=== PATIENT | female | born 1945 | race American Indian/Alaskan Native ===

== ENCOUNTER 2017-08-08 18:26 | Inpatient (IN) | payer MEDICARE, BC ==
[~2017-08-08] VITALS: Ht 157.5 cm; Wt 92.4 kg
[2017-08-08 19:27] LABS: INR 1.2 INR; PARTIAL THROMBOPLASTIN TIME 26 SECONDS (22-32); PROTHROMBIN TIME 11.9 SECONDS (9.0-12.0)
[2017-08-08 19:34] LABS: ALANINE AMINOTRANSFERASE 27 U/L (12-78); ALBUMIN 3.2 G/DL (3.4-5.0); ALBUMIN/GLOBULIN RATIO 0.6 (1.1-1.5); ALKALINE PHOSPHATASE 299 IU/L (46-116); ANION GAP 9 (8-16); ASPARTATE AMINO TRANSFERASE 25 U/L (10-37); BILIRUBIN,TOTAL 1.4 MG/DL (0.1-1.0); BLOOD UREA NITROGEN 24 MG/DL (7-18); BUN/CREATININE RATIO 15.1 (6.6-38.0); CALCIUM 9.3 MG/DL (8.5-10.1); CHLORIDE 101 MMOL/L (99-107); CREATININE 1.59 MG/DL (0.40-0.90); GLUCOSE 205 MG/DL (70-104); POTASSIUM 3.5 MMOL/L (3.5-5.1); SODIUM 139 MMOL/L (135-145); TOTAL CARBON DIOXIDE 28.7 MMOL/L (24-32); TOTAL PROTEIN 8.7 G/DL (6.4-8.2); eGFR 32 ML/MIN
[2017-08-08] MEDS ORDERED: INSU100V12 SQ (19:34)
[2017-08-08] MEDS ORDERED: LISI-600 PO (19:34)
[2017-08-08 19:38] LABS: BASOPHILS % (AUTO) 0.5 % (0-1); EOSINOPHILS # (AUTO) 0.2 X10'3 (0-0.9); HEMATOCRIT 34.7 % (35.0-45.0); HEMOGLOBIN 11.7 g/dl (12.0-16.0); LYMPHOCYTES # (AUTO) 0.9 X10'3 (1.1-4.8); MEAN CORPUSCULAR HEMOGLOBIN 31.1 PG (27.0-31.0); MEAN CORPUSCULAR HGB CONC 33.8 % (33.0-36.5); MEAN CORPUSCULAR VOLUME 92.1 FL (78-98); MEAN PLATELET VOLUME 9.9 FL (7.4-10.4); MONOCYTES # (AUTO) 0.6 X10'3 (0-0.9); MONOCYTES % (AUTO) 8.2 % (2-12); NEUTROPHILS # (AUTO) 6.1 X10'3 (1.8-7.7); NEUTROPHILS % (AUTO) 77.3 % (42-75); PLATELET COUNT 141 X10'3 (140-440); RED BLOOD COUNT 3.77 X10'6 (4.20-5.60); RED CELL DISTRIBUTION WIDTH 16.6 % (11.5-14.5); WHITE BLOOD COUNT 7.9 X10'3 (4.5-11.0)
[2017-08-08 19:53] LABS: D-DIMER 1.44 MG/L FEU (0-0.50)
[2017-08-08] MEDS ORDERED: temazepam 15mg capsule PO PRN (21:00)
[2017-08-08] MEDS ORDERED: iohexol 350MG/ML 100ml bottle IV ONE (21:39)
[2017-08-08] MEDS ORDERED: HYDROchlorothiazide 25mg tablet PO ONE (21:40)
[2017-08-08] MEDS ORDERED: acetaminophen 325mg tablet PO PRN ×2 (21:40)
[2017-08-08] MEDS ORDERED: glucagon, human recombinant 1mg kit SUBCUT PRN (21:40)
[2017-08-08] MEDS ORDERED: magnesium hydroxide 30ml (MOM) UD suspension PO PRN (21:40)
[2017-08-08] MEDS ORDERED: MESSAGE TO PHARMACY PO ONE (21:40)
[2017-08-08] MEDS ORDERED: mag hydrox/Alum hydrox/simeth 30ml oral suspension PO PRN (21:40)
[2017-08-08] MEDS ORDERED: dextrose ORAL solution 15 GM/59 ML bottle PO PRN ×2 (21:40)
[2017-08-08] MEDS ORDERED: dextrose 50%-water 50ml dispensing syringe IV PRN ×2 (21:40)
[2017-08-08] MEDS ORDERED: HYDROcodone/acetaminophen 5mg/325mg tablet PO PRN (21:40)
[2017-08-08 22:15] VITALS: BP 200/107
[2017-08-08 22:23] LABS: HEMOGLOBIN A1C 10.8 % (4.5-6.2)
[2017-08-08 23:00] VITALS: BP 194/97
[2017-08-09] VITALS (12 sets, daily range): BP systolic 97–159; BP diastolic 44–87
[2017-08-09] MEDS: nitroGLYCERIN 0.4mg/hour patch TD SCH ×2 (00:46→08:00)
[2017-08-09] MEDS: ondansetron/PF 4mg/2ml inj IV PRN ×2 (02:29→09:12)
[2017-08-09 06:03] LABS: BASOPHILS # (AUTO) 0.1 X10'3 (0-0.2); BASOPHILS % (AUTO) 0.9 % (0-1); EOSINOPHILS # (AUTO) 0.2 X10'3 (0-0.9); EOSINOPHILS % (AUTO) 2.8 % (0-6); HEMATOCRIT 31.3 % (35.0-45.0); HEMOGLOBIN 10.6 g/dl (12.0-16.0); LYMPHOCYTES # (AUTO) 0.8 X10'3 (1.1-4.8); LYMPHOCYTES % (AUTO) 10.8 % (21-51); MEAN CORPUSCULAR HGB CONC 33.7 % (33.0-36.5); MEAN PLATELET VOLUME 9.8 FL (7.4-10.4); MONOCYTES # (AUTO) 0.7 X10'3 (0-0.9); MONOCYTES % (AUTO) 9.6 % (2-12); NEUTROPHILS # (AUTO) 5.3 X10'3 (1.8-7.7); NEUTROPHILS % (AUTO) 75.9 % (42-75); PLATELET COUNT 122 X10'3 (140-440); RED CELL DISTRIBUTION WIDTH 16.3 % (11.5-14.5)
[2017-08-09 06:21] LABS: ALBUMIN 2.7 G/DL (3.4-5.0); ANION GAP 8 (8-16); BLOOD UREA NITROGEN 22 MG/DL (7-18); BUN/CREATININE RATIO 15.6 (6.6-38.0); CALCIUM 8.9 MG/DL (8.5-10.1); CHLORIDE 101 MMOL/L (99-107); CHOLESTEROL 127 MG/DL (0-200); CREATININE 1.41 MG/DL (0.40-0.90); GLUCOSE 193 MG/DL (70-104); HDL CHOLESTEROL 43 MG/DL (35-60); LDL CHOLESTEROL 82 MG/DL (50-100); POTASSIUM 3.7 MMOL/L (3.5-5.1); SODIUM 138 MMOL/L (135-145); TOTAL CARBON DIOXIDE 28.8 MMOL/L (24-32); TRIGLYCERIDES 69 MG/DL (20-135); TROPONIN I < 0.04 NG/ML (0.0-0.05); eGFR 37 ML/MIN
[2017-08-09] MEDS: lisinopril 20mg tablet PO SCH (07:42)
[2017-08-09] MEDS ORDERED: nitroGLYCERIN 0.4mg/hour patch TD SCH ×2 (08:00)
[2017-08-09] MEDS: insulin Lispro (HumaLOG) vial - multi-dose SQ SCH ×2 (09:16→12:17)
[2017-08-09] MEDS ORDERED: sodium bicarbonate (8.4%) inj. 150 MEQ in sodium chloride 0.45% 1,000 ML IV SCH (10:15)
[2017-08-09] MEDS: acetylcysteine 200 MG/ml 4ml vial PO SCH ×2 (11:34→21:31)
[2017-08-09] MEDS ORDERED: midazolam 2 mg/2 ml injection ONE (12:14)
[2017-08-09] MEDS ORDERED: fentaNYL/PF 50MCG/1 ML 2ML syringe ONE (12:14)
[2017-08-09] MEDS ORDERED: heparin 1,000unit/ml 10ml vial 10 ML ONE (12:15)
[2017-08-09] MEDS ORDERED: iohexol 350 MG/ML 50ML vial IV ONE (12:15)
[2017-08-09] MEDS ORDERED: iohexol 350MG/ML 100ml bottle IV ONE (12:15)
[2017-08-09] MEDS ORDERED: LIDOcaine 1% w/EPI 1:100,000 30ml vial (MDV) ONE (12:15)
[2017-08-09] MEDS ORDERED: nitroGLYCERIN-Tridil 50MG/D5W 250 ML IV ONE (12:50)
[2017-08-09] MEDS ORDERED: heparin 1,000 UNITS/NS 500ml 500 ML ONE (13:28)
[2017-08-09] MEDS ORDERED: furosemide 40mg/4ml inj ONE (13:38)
[2017-08-09] MEDS ORDERED: diphenhydrAMINE 50 mg/ml inj ONE (13:50)
[2017-08-09 14:41] LABS: ISTAT HGB ART 10.5 g/dl (12.0-16.0); ISTAT Hct ART 31 %PCV (35-48); ISTAT O2 SATURATION ARTERIAL 95 % (95-98); ISTAT SOURCE ART
[2017-08-09 14:45] LABS: ISTAT Hct MIX 32 %PCV (35-48); ISTAT O2 SATURATION MIX VENOUS 69 % (60-80); ISTAT SOURCE MIX
[2017-08-09] MEDS ORDERED: magnesium Cl slow-release 64mg tablet PO PRN (14:55)
[2017-08-09] MEDS ORDERED: potassium Cl 20 mEq SR tablet PO PRN ×3 (14:55→15:00)
[2017-08-09] MEDS ORDERED: potassium Cl 20 mEq SR tablet PO ONE (14:55)
[2017-08-09] MEDS: pantoprazole 40mg Tablet.DR PO SCH (16:53)
[2017-08-09] MEDS: potassium Cl 20 mEq SR tablet PO SCH (17:30)
[2017-08-09] MEDS: furosemide 20 MG/2 ML vial IV SCH (20:00)
[2017-08-09] MEDS: gabapentin 100mg capsule PO SCH (20:44)
[2017-08-09] MEDS ORDERED: INSULIN DETEMIR 60 UNIT SQ SCH (21:00)
[2017-08-09] MEDS ORDERED: insulin glargine (Lantus) pen - multi-dose SQ SCH (21:00)
[2017-08-09] MEDS: temazepam 15mg capsule PO PRN (21:31)
[2017-08-09] MEDS: insulin glargine (Lantus) pen - multi-dose SQ SCH (21:34)
[2017-08-10 02:00] VITALS: BP 125/71
[2017-08-10 04:50] LABS: BASOPHILS % (AUTO) 0.4 % (0-1); EOSINOPHILS # (AUTO) 0.1 X10'3 (0-0.9); EOSINOPHILS % (AUTO) 2.1 % (0-6); HEMOGLOBIN 10.3 g/dl (12.0-16.0); LYMPHOCYTES # (AUTO) 0.8 X10'3 (1.1-4.8); LYMPHOCYTES % (AUTO) 11.2 % (21-51); MEAN CORPUSCULAR HEMOGLOBIN 30.8 PG (27.0-31.0); MEAN CORPUSCULAR HGB CONC 33.2 % (33.0-36.5); MEAN CORPUSCULAR VOLUME 92.6 FL (78-98); MEAN PLATELET VOLUME 9.7 FL (7.4-10.4); MONOCYTES # (AUTO) 0.9 X10'3 (0-0.9); NEUTROPHILS # (AUTO) 5.1 X10'3 (1.8-7.7); NEUTROPHILS % (AUTO) 73.3 % (42-75); PLATELET COUNT 117 X10'3 (140-440); RED BLOOD COUNT 3.35 X10'6 (4.20-5.60); RED CELL DISTRIBUTION WIDTH 16.8 % (11.5-14.5)
[2017-08-10 05:22] LABS: ALBUMIN 2.8 G/DL (3.4-5.0); ANION GAP 2 (8-16); BLOOD UREA NITROGEN 26 MG/DL (7-18); BUN/CREATININE RATIO 14.8 (6.6-38.0); CALCIUM 8.7 MG/DL (8.5-10.1); CHLORIDE 101 MMOL/L (99-107); CREATININE 1.76 MG/DL (0.40-0.90); GLUCOSE 200 MG/DL (70-104); SODIUM 137 MMOL/L (135-145); TOTAL CARBON DIOXIDE 33.6 MMOL/L (24-32); eGFR 28 ML/MIN
[2017-08-10 06:00] VITALS: BP 138/69
[2017-08-10 06:49] LABS: MAGNESIUM 1.7 MG/DL (1.5-2.4)
[2017-08-10] MEDS: gabapentin 100mg capsule PO SCH ×3 (07:22→21:11)
[2017-08-10] MEDS: furosemide 20 MG/2 ML vial IV SCH ×2 (07:22→21:11)
[2017-08-10] MEDS: lisinopril 20mg tablet PO SCH (07:23)
[2017-08-10] MEDS: pantoprazole 40mg Tablet.DR PO SCH (07:23)
[2017-08-10] MEDS: potassium Cl 20 mEq SR tablet PO SCH ×2 (07:23→08:30)
[2017-08-10] MEDS: nitroGLYCERIN 0.4mg/hour patch TD SCH (08:00)
[2017-08-10] MEDS ORDERED: furosemide 40mg tablet PO SCH (08:00)
[2017-08-10] MEDS: acetylcysteine 200 MG/ml 4ml vial PO SCH (09:22)
[2017-08-10] MEDS: insulin Lispro (HumaLOG) vial - multi-dose SQ SCH ×3 (09:34→19:12)
[2017-08-10 11:00] VITALS: BP 109/56
[2017-08-10] MEDS ORDERED: MESSAGE TO NURSING PO ONE (12:30)
[2017-08-10 13:06] LABS: INR 1.2 INR; PARTIAL THROMBOPLASTIN TIME 26 SECONDS (22-32); PROTHROMBIN TIME 12.1 SECONDS (9.0-12.0)
[2017-08-10 15:00] VITALS: BP 116/48
[2017-08-10 18:00] VITALS: BP 116/59
[2017-08-10] MEDS: insulin glargine (Lantus) pen - multi-dose SQ SCH (21:28)
[2017-08-10 22:00] VITALS: BP 102/57
[2017-08-11 02:00] VITALS: BP 93/52
[2017-08-11] MEDS: ondansetron/PF 4mg/2ml inj IV PRN (03:08)
[2017-08-11 05:06] LABS: BASOPHILS % (AUTO) 0.4 % (0-1); EOSINOPHILS # (AUTO) 0.2 X10'3 (0-0.9); EOSINOPHILS % (AUTO) 3.1 % (0-6); HEMATOCRIT 30.6 % (35.0-45.0); HEMOGLOBIN 10.1 g/dl (12.0-16.0); LYMPHOCYTES % (AUTO) 14.5 % (21-51); MEAN CORPUSCULAR HEMOGLOBIN 30.6 PG (27.0-31.0); MEAN CORPUSCULAR HGB CONC 33.1 % (33.0-36.5); MEAN CORPUSCULAR VOLUME 92.4 FL (78-98); MONOCYTES # (AUTO) 0.9 X10'3 (0-0.9); MONOCYTES % (AUTO) 13.2 % (2-12); NEUTROPHILS # (AUTO) 4.7 X10'3 (1.8-7.7); NEUTROPHILS % (AUTO) 68.8 % (42-75); PLATELET COUNT 118 X10'3 (140-440); RED BLOOD COUNT 3.31 X10'6 (4.20-5.60); RED CELL DISTRIBUTION WIDTH 16.2 % (11.5-14.5); WHITE BLOOD COUNT 6.8 X10'3 (4.5-11.0)
[2017-08-11 05:41] LABS: ALBUMIN 2.7 G/DL (3.4-5.0); ANION GAP 5 (8-16); BLOOD UREA NITROGEN 33 MG/DL (7-18); BUN/CREATININE RATIO 11.9 (6.6-38.0); CALCIUM 8.6 MG/DL (8.5-10.1); CHLORIDE 100 MMOL/L (99-107); CREATININE 2.77 MG/DL (0.40-0.90); GLUCOSE 97 MG/DL (70-104); POTASSIUM 4.5 MMOL/L (3.5-5.1); SODIUM 136 MMOL/L (135-145); TOTAL CARBON DIOXIDE 31.4 MMOL/L (24-32); eGFR 17 ML/MIN
[2017-08-11 06:00] VITALS: BP 113/50
[2017-08-11] MEDS: potassium Cl 20 mEq SR tablet PO SCH (08:00)
[2017-08-11] MEDS: gabapentin 100mg capsule PO SCH ×3 (08:00→20:25)
[2017-08-11] MEDS ORDERED: bisacodyl 5mg tablet.DR PO ONE (08:55)
[2017-08-11] MEDS: acetylcysteine 200 MG/ml 4ml vial PO SCH ×2 (09:57→20:00)
[2017-08-11] MEDS: insulin Lispro (HumaLOG) vial - multi-dose SQ SCH ×3 (10:01→18:48)
[2017-08-11] MEDS: normal saline 1000ml 1,000 ML IV SCH ×2 (10:02→20:37)
[2017-08-11 11:00] VITALS: BP 146/82
[2017-08-11 11:47] LABS: CLARITY,URINE CLOUDY (Clear); COLOR,URINE YELLOW (Yellow); GLUCOSE, URINE NEGATIVE (Neg); KETONES,URINE NEGATIVE (Neg); LEUKOCYTE ESTERASE ,URINE LARGE (Neg); NITRITES, URINE NEGATIVE (Neg); OCCULT BLOOD,URINE LARGE (Neg); PH,URINE 6.5 (4.8-8.0); PROTEIN,URINE 30 mg/dl (Neg)
[2017-08-11 12:02] LABS: UA COLLECTION TYPE NON-SPECIFIED
[2017-08-11 12:03] LABS: BACTERIA,URINE FEW /HPF (Neg); RBC,URINE 20-50 /HPF (0-2); SQUAMOUS EPITHELIAL CELL,UR MODERATE /LPF (FEW); WBC,URINE TNTC /HPF (0-4)
[2017-08-11 12:04] LABS: MUCUS STRANDS FEW /LPF (Neg)
[2017-08-11 14:28] LABS: ALBUMIN 2.8 G/DL (3.4-5.0); ANION GAP 9 (8-16); BLOOD UREA NITROGEN 35 MG/DL (7-18); BUN/CREATININE RATIO 11.6 (6.6-38.0); CALCIUM 8.9 MG/DL (8.5-10.1); CHLORIDE 98 MMOL/L (99-107); CREATININE 3.03 MG/DL (0.40-0.90); GLUCOSE 201 MG/DL (70-104); POTASSIUM 4.2 MMOL/L (3.5-5.1); SODIUM 135 MMOL/L (135-145); TOTAL CARBON DIOXIDE 28.3 MMOL/L (24-32); eGFR 15 ML/MIN
[2017-08-11 15:00] VITALS: BP 134/65
[2017-08-11] MEDS: ciprofloxacin 250mg tablet PO SCH (16:21)
[2017-08-11 19:00] VITALS: BP 125/59
[2017-08-11 20:18] LABS: CLARITY,URINE CLOUDY (Clear); COLOR,URINE YELLOW (Yellow); GLUCOSE, URINE NEGATIVE (Neg); KETONES,URINE NEGATIVE (Neg); LEUKOCYTE ESTERASE ,URINE LARGE (Neg); NITRITES, URINE NEGATIVE (Neg); OCCULT BLOOD,URINE LARGE (Neg); PROTEIN,URINE 30 mg/dl (Neg)
[2017-08-11 20:20] LABS: UA COLLECTION TYPE VOIDED
[2017-08-11 20:35] LABS: WBC,URINE TNTC /HPF (0-4)
[2017-08-11 20:36] LABS: BACTERIA,URINE 2+ /HPF (Neg)
[2017-08-11 20:37] LABS: SQUAMOUS EPITHELIAL CELL,UR MODERATE /LPF (FEW)
[2017-08-11] MEDS: temazepam 15mg capsule PO PRN (20:37)
[2017-08-11] MEDS: insulin glargine (Lantus) pen - multi-dose SQ SCH (20:44)
[2017-08-11 23:00] VITALS: BP 97/48
[2017-08-12 03:00] VITALS: BP 98/60
[2017-08-12 05:08] LABS: BASOPHILS % (AUTO) 0.7 % (0-1); EOSINOPHILS # (AUTO) 0.3 X10'3 (0-0.9); EOSINOPHILS % (AUTO) 4.2 % (0-6); HEMATOCRIT 29.8 % (35.0-45.0); LYMPHOCYTES # (AUTO) 0.8 X10'3 (1.1-4.8); LYMPHOCYTES % (AUTO) 13.2 % (21-51); MEAN CORPUSCULAR HEMOGLOBIN 31.1 PG (27.0-31.0); MEAN CORPUSCULAR HGB CONC 33.4 % (33.0-36.5); MEAN PLATELET VOLUME 9.9 FL (7.4-10.4); MONOCYTES # (AUTO) 0.8 X10'3 (0-0.9); MONOCYTES % (AUTO) 12.9 % (2-12); NEUTROPHILS # (AUTO) 4.2 X10'3 (1.8-7.7); PLATELET COUNT 111 X10'3 (140-440); RED BLOOD COUNT 3.21 X10'6 (4.20-5.60); RED CELL DISTRIBUTION WIDTH 16.7 % (11.5-14.5); WHITE BLOOD COUNT 6.1 X10'3 (4.5-11.0)
[2017-08-12 05:49] LABS: ALBUMIN 2.6 G/DL (3.4-5.0); ANION GAP 5 (8-16); BLOOD UREA NITROGEN 39 MG/DL (7-18); BUN/CREATININE RATIO 13.4 (6.6-38.0); CALCIUM 8.3 MG/DL (8.5-10.1); CHLORIDE 101 MMOL/L (99-107); CREATININE 2.91 MG/DL (0.40-0.90); GLUCOSE 102 MG/DL (70-104); POTASSIUM 4.3 MMOL/L (3.5-5.1); SODIUM 134 MMOL/L (135-145); TOTAL CARBON DIOXIDE 28.4 MMOL/L (24-32); eGFR 16 ML/MIN
[2017-08-12 07:00] VITALS: BP 122/75
[2017-08-12] MEDS: acetylcysteine 200 MG/ml 4ml vial PO SCH ×2 (08:54→21:33)
[2017-08-12] MEDS: gabapentin 100mg capsule PO SCH ×3 (08:55→21:32)
[2017-08-12] MEDS: normal saline 1000ml 1,000 ML IV SCH ×2 (09:03→14:15)
[2017-08-12] MEDS: ciprofloxacin 250mg tablet PO SCH (09:05)
[2017-08-12] MEDS: lisinopril 10 MG tablet PO SCH (09:05)
[2017-08-12] MEDS ORDERED: magnesium hydroxide 30ml (MOM) UD suspension PO ONE (10:20)
[2017-08-12 11:33] VITALS: BP 148/85
[2017-08-12] MEDS: insulin Lispro (HumaLOG) vial - multi-dose SQ SCH ×2 (13:34→19:58)
[2017-08-12 19:00] VITALS: BP 152/77
[2017-08-12] MEDS: temazepam 15mg capsule PO PRN (21:31)
[2017-08-12] MEDS: insulin glargine (Lantus) pen - multi-dose SQ SCH (21:42)
[2017-08-12 23:00] VITALS: BP 99/53
[2017-08-13] VITALS (7 sets, daily range): BP systolic 99–174; BP diastolic 54–79
[2017-08-13] MEDS ORDERED: potassium phosphate inj 30 MMOL in normal saline 500ml IV soln 490 ML IV ONE (02:00)
[2017-08-13 05:58] LABS: BASOPHILS % (AUTO) 0.7 % (0-1); EOSINOPHILS # (AUTO) 0.3 X10'3 (0-0.9); EOSINOPHILS % (AUTO) 4.7 % (0-6); HEMATOCRIT 30.5 % (35.0-45.0); HEMOGLOBIN 10.2 g/dl (12.0-16.0); LYMPHOCYTES # (AUTO) 0.8 X10'3 (1.1-4.8); LYMPHOCYTES % (AUTO) 12.6 % (21-51); MEAN CORPUSCULAR HEMOGLOBIN 30.7 PG (27.0-31.0); MEAN CORPUSCULAR HGB CONC 33.4 % (33.0-36.5); MEAN CORPUSCULAR VOLUME 91.8 FL (78-98); MEAN PLATELET VOLUME 9.9 FL (7.4-10.4); MONOCYTES # (AUTO) 0.7 X10'3 (0-0.9); MONOCYTES % (AUTO) 12.1 % (2-12); NEUTROPHILS # (AUTO) 4.3 X10'3 (1.8-7.7); NEUTROPHILS % (AUTO) 69.9 % (42-75); PLATELET COUNT 121 X10'3 (140-440); RED BLOOD COUNT 3.32 X10'6 (4.20-5.60); RED CELL DISTRIBUTION WIDTH 16.5 % (11.5-14.5); WHITE BLOOD COUNT 6.2 X10'3 (4.5-11.0)
[2017-08-13 06:27] LABS: ALBUMIN 2.7 G/DL (3.4-5.0); ANION GAP 10 (8-16); BLOOD UREA NITROGEN 41 MG/DL (7-18); BUN/CREATININE RATIO 14.6 (6.6-38.0); CALCIUM 8.9 MG/DL (8.5-10.1); CHLORIDE 100 MMOL/L (99-107); CREATININE 2.81 MG/DL (0.40-0.90); GLUCOSE 128 MG/DL (70-104); POTASSIUM 4.4 MMOL/L (3.5-5.1); SODIUM 137 MMOL/L (135-145); TOTAL CARBON DIOXIDE 27.3 MMOL/L (24-32); eGFR 17 ML/MIN
[2017-08-13] MEDS: normal saline 1000ml 1,000 ML IV SCH ×3 (07:01→21:22)
[2017-08-13] MEDS: acetylcysteine 200 MG/ml 4ml vial PO SCH ×2 (07:50→21:29)
[2017-08-13] MEDS: gabapentin 100mg capsule PO SCH ×3 (07:50→21:17)
[2017-08-13] MEDS: lisinopril 10 MG tablet PO SCH (07:50)
[2017-08-13] MEDS: ciprofloxacin 250mg tablet PO SCH (07:50)
[2017-08-13 08:25] LABS: ABG BASE EXCESS 1.7 mmol/L (-2.0-3.0); ABG HCO3 25.4 mmol/L (22.0-26.0); ABG OXYGEN SATURATION 96.5 % (95-98); ABG PCO2 (T) 36.5 mmHg (32.0-45.0); ABG PO2 (T) 88.4 mmHg (83-108); ALLEN'S TEST Positive; FCOHb 0.8 % (0.5-1.5); FMetHb 0.3 % (0.3-1.12); FO2Hb 95.4 % (94-100); TOTAL HEMOGLOBIN 11.5 G/dl (12.0-16.0)
[2017-08-13] MEDS ORDERED: MESSAGE TO NURSING PO ONE (10:00)
[2017-08-13] MEDS: insulin Lispro (HumaLOG) vial - multi-dose SQ SCH ×2 (10:40→13:34)
[2017-08-13] MEDS ORDERED: mupirocin 2% nasal ointment 1gm UD NS SCH (20:00)
[2017-08-13] MEDS: insulin glargine (Lantus) pen - multi-dose SQ SCH (23:10)
[2017-08-14] VITALS (20 sets, daily range): BP systolic 112–147; BP diastolic 46–81
[2017-08-14] MEDS ORDERED: MESSAGE TO NURSING PO ONE ×3 (02:00→05:30)
[2017-08-14] MEDS ORDERED: LORazepam 2 mg/ml vial ONE ×2 (05:12→07:05)
[2017-08-14] MEDS ORDERED: dextrose 50%-water 50ml dispensing syringe IV PRN ×2 (05:30→10:35)
[2017-08-14] MEDS ORDERED: ceFAZolin 2gm in dextrose, iso 100 ML IV ONE (05:30)
[2017-08-14] MEDS ORDERED: insulin Lispro (HumaLOG) vial - multi-dose SQ SCH (05:30)
[2017-08-14] MEDS: insulin regular, human inj. 100 UNITS in normal saline 100ml IV soln 100 ML IV SCH ×2 (05:30)
[2017-08-14] MEDS ORDERED: vancomycin/NS 1 GM ADD-VANTAGE 250 ML IV ONE ×2 (05:30)
[2017-08-14 06:27] LABS: BASOPHILS % (AUTO) 0.8 % (0-1); EOSINOPHILS # (AUTO) 0.3 X10'3 (0-0.9); EOSINOPHILS % (AUTO) 4.7 % (0-6); HEMATOCRIT 32.5 % (35.0-45.0); HEMOGLOBIN 10.9 g/dl (12.0-16.0); LYMPHOCYTES # (AUTO) 0.8 X10'3 (1.1-4.8); LYMPHOCYTES % (AUTO) 12.3 % (21-51); MEAN CORPUSCULAR HGB CONC 33.6 % (33.0-36.5); MEAN CORPUSCULAR VOLUME 92.3 FL (78-98); MEAN PLATELET VOLUME 10.1 FL (7.4-10.4); MONOCYTES # (AUTO) 0.7 X10'3 (0-0.9); MONOCYTES % (AUTO) 10.8 % (2-12); NEUTROPHILS # (AUTO) 4.5 X10'3 (1.8-7.7); NEUTROPHILS % (AUTO) 71.4 % (42-75); PLATELET COUNT 134 X10'3 (140-440); RED BLOOD COUNT 3.53 X10'6 (4.20-5.60); RED CELL DISTRIBUTION WIDTH 16.8 % (11.5-14.5); WHITE BLOOD COUNT 6.4 X10'3 (4.5-11.0)
[2017-08-14 06:35] LABS: INR 1.2 INR
[2017-08-14 06:41] LABS: ALBUMIN 3.1 G/DL (3.4-5.0); ANION GAP 9 (8-16); BLOOD UREA NITROGEN 41 MG/DL (7-18); BUN/CREATININE RATIO 16.7 (6.6-38.0); CALCIUM 9.2 MG/DL (8.5-10.1); CHLORIDE 102 MMOL/L (99-107); CREATININE 2.45 MG/DL (0.40-0.90); GLUCOSE 116 MG/DL (70-104); POTASSIUM 4.4 MMOL/L (3.5-5.1); SODIUM 138 MMOL/L (135-145); TOTAL CARBON DIOXIDE 27.1 MMOL/L (24-32); eGFR 19 ML/MIN
[2017-08-14] MEDS ORDERED: LORazepam 2 mg/ml vial IV ONE ×2 (06:45→06:50)
[2017-08-14] MEDS ORDERED: famotidine 20mg tablet PO ONE (06:45)
[2017-08-14] MEDS ORDERED: mannitol 20% (100GM) 500ml IV soln IV ONE (06:55)
[2017-08-14] MEDS ORDERED: INSULIN R 100 UNIT in NS 100ML (1 UNIT/1 ML) BAG IV ONE (06:55)
[2017-08-14] MEDS ORDERED: sevoflurane 250ml liquid IH ONE (06:55)
[2017-08-14] MEDS ORDERED: DOBUTamine/D5W 500mg/250ml premix IV ONE (06:55)
[2017-08-14] MEDS ORDERED: nitroGLYCERIN in D5W 50mg/250ml (Tridil) infusion IV ONE (06:55)
[2017-08-14] MEDS ORDERED: SUFENTANIL CITRATE 50 MCG/ML 2ml ampule IV ONE (07:02)
[2017-08-14] MEDS ORDERED: rocuronium 10mg/ml inj IV ONE (07:03)
[2017-08-14] MEDS ORDERED: propofol inj 0 ML IV ONE (07:03)
[2017-08-14] MEDS ORDERED: etomidate 2mg/ml inj. ONE (07:03)
[2017-08-14] MEDS ORDERED: albumin (Human) 5% 250ml 250 ML IV ONE ×2 (07:07→08:04)
[2017-08-14 07:55] LABS: ABG BASE EXCESS 0.7 mmol/L (-2.0-3.0); ABG HCO3 23.5 mmol/L (22.0-26.0); ABG OXYGEN SATURATION 99.4 % (95-98); ABG PCO2 31.2 mmHg (35.0-45.0); ABG PH 7.495 (7.350-7.450); ABG PO2 305.7 mmHg (60.0-100.0); CL (ABG) 103 mmol/L (99-107); FCOHb 0.3 % (0.5-1.5); FMetHb 0.3 % (0.3-1.12); FO2Hb 98.8 % (94-100); GLUCOSE (ABG) 140 mg/dl (70-105); IONIZED CA (ABG) 1.07 mmol/L (1.03-1.32); K (ABG) 4.1 mmol/L (3.3-5.1); NA (ABG) 131 mmol/L (135-145); TOTAL HEMOGLOBIN 9.9 G/dl (12.0-16.0)
[2017-08-14] MEDS: gabapentin 100mg capsule PO SCH ×3 (08:00→20:04)
[2017-08-14] MEDS: acetylcysteine 200 MG/ml 4ml vial PO SCH (08:00)
[2017-08-14 08:51] LABS: ACT @ 1.70 U 343 SEC (193-297); ACT @ 2.84 U 586 SEC (260-420); BASELINE ACT 173 SEC (101-148); PATIENT WEIGHT 89.0k KG
[2017-08-14 09:51] LABS: ABG BASE EXCESS 4.5 mmol/L (-2.0-3.0); ABG HCO3 27.9 mmol/L (22.0-26.0); ABG OXYGEN SATURATION 97.1 % (95-98); ABG PCO2 36.4 mmHg (35.0-45.0); ABG PH 7.502 (7.350-7.450); ABG PO2 90.4 mmHg (60.0-100.0); CL (ABG) 104 mmol/L (99-107); FCOHb 0.2 % (0.5-1.5); FMetHb 0.3 % (0.3-1.12); FO2Hb 96.6 % (94-100); IONIZED CA (ABG) 1.06 mmol/L (1.03-1.32); K (ABG) 3.8 mmol/L (3.3-5.1); NA (ABG) 135 mmol/L (135-145); TOTAL HEMOGLOBIN 9.2 G/dl (12.0-16.0)
[2017-08-14] MEDS ORDERED: ipratropium/albuterol 3ml nebule IH PRN (10:00)
[2017-08-14] MEDS ORDERED: nitroGLYCERIN-Tridil 50MG/D5W 250 ML IV PRN (10:32)
[2017-08-14] MEDS: sodium chloride 0.45% 1,000 ML IV SCH (10:32)
[2017-08-14] MEDS ORDERED: niCARDipine/sod cl 20mg/200ml 200 ML IV PRN (10:32)
[2017-08-14] MEDS ORDERED: DOPamine 400mg/D5W 250ml 250 ML IV PRN (10:32)
[2017-08-14] MEDS ORDERED: potassium Cl 20mEq/100mL bag 100 ML IV PRN ×2 (10:35)
[2017-08-14] MEDS ORDERED: insulin regular, human inj. 100 UNITS in normal saline 100ml IV soln 100 ML IV SCH ×2 (10:35)
[2017-08-14] MEDS ORDERED: magnesium hydroxide 30ml (MOM) UD suspension PO PRN (10:35)
[2017-08-14] MEDS ORDERED: morphine 4 MG/ML inj SYRINge IV PRN (10:35)
[2017-08-14] MEDS ORDERED: acetaminophen 325mg tablet PO PRN (10:35)
[2017-08-14] MEDS ORDERED: sodium phosphate inj. 15 MMOL in dextrose 5%-water 150 ML IV PRN (10:35)
[2017-08-14] MEDS ORDERED: sodium phosphate inj. 30 MMOL in dextrose 5%-water 250 ML IV PRN (10:35)
[2017-08-14] MEDS ORDERED: normal saline 250ml IV soln 250 ML IV PRN (10:35)
[2017-08-14] MEDS ORDERED: metoclopramide 5 mg/ml inj IV PRN (10:35)
[2017-08-14] MEDS ORDERED: Neutra Phos packet PO PRN (10:35)
[2017-08-14] MEDS ORDERED: ondansetron/PF 4mg/2ml inj IV PRN (10:35)
[2017-08-14] MEDS ORDERED: magnesium 4gm in 100ml NS 100 ML IV PRN (10:35)
[2017-08-14 11:06] LABS: ABG BASE EXCESS 2.6 mmol/L (-2.0-3.0); ABG HCO3 25.4 mmol/L (22.0-26.0); ABG OXYGEN SATURATION 98.3 % (95-98); ABG PH (T) 7.485 (7.350-7.450); ABG PO2 (T) 148.3 mmHg (83-108); FCOHb 0.3 % (0.5-1.5); PEEP 5 cm H2O; RESPIRATORY RATE 14 b/min; TIDAL VOLUME 450 mL; TOTAL HEMOGLOBIN 8.9 G/dl (12.0-16.0)
[2017-08-14 11:08] LABS: BASOPHILS % (AUTO) 0.6 % (0-1); EOSINOPHILS # (AUTO) 0.2 X10'3 (0-0.9); EOSINOPHILS % (AUTO) 3.5 % (0-6); HEMOGLOBIN 8.1 g/dl (12.0-16.0); LYMPHOCYTES # (AUTO) 0.6 X10'3 (1.1-4.8); LYMPHOCYTES % (AUTO) 12.5 % (21-51); MEAN CORPUSCULAR HEMOGLOBIN 31.1 PG (27.0-31.0); MEAN CORPUSCULAR HGB CONC 33.9 % (33.0-36.5); MEAN PLATELET VOLUME 9.7 FL (7.4-10.4); MONOCYTES # (AUTO) 0.7 X10'3 (0-0.9); MONOCYTES % (AUTO) 13.1 % (2-12); NEUTROPHILS # (AUTO) 3.5 X10'3 (1.8-7.7); NEUTROPHILS % (AUTO) 70.3 % (42-75); PLATELET COUNT 105 X10'3 (140-440); RED BLOOD COUNT 2.61 X10'6 (4.20-5.60); RED CELL DISTRIBUTION WIDTH 16.5 % (11.5-14.5)
[2017-08-14 11:20] LABS: INR 1.3 INR; PARTIAL THROMBOPLASTIN TIME 29 SECONDS (22-32); PROTHROMBIN TIME 13.3 SECONDS (9.0-12.0)
[2017-08-14 11:24] LABS: ALANINE AMINOTRANSFERASE 18 U/L (12-78); ALBUMIN 2.3 G/DL (3.4-5.0); ALBUMIN/GLOBULIN RATIO 0.6 (1.1-1.5); ALKALINE PHOSPHATASE 161 IU/L (46-116); ANION GAP 5 (8-16); ASPARTATE AMINO TRANSFERASE 22 U/L (10-37); BLOOD UREA NITROGEN 39 MG/DL (7-18); CHLORIDE 106 MMOL/L (99-107); CREATININE 2.29 MG/DL (0.40-0.90); GLUCOSE 79 MG/DL (70-104); MAGNESIUM 2.2 MG/DL (1.5-2.4); PHOSPHORUS 3.8 MG/DL (2.3-4.5); POTASSIUM 3.7 MMOL/L (3.5-5.1); SODIUM 139 MMOL/L (135-145); TOTAL CARBON DIOXIDE 27.7 MMOL/L (24-32); eGFR 21 ML/MIN
[2017-08-14] MEDS: magnesium 1gm/100ml D5W IVPB 100 ML IV PRN ×2 (12:33→13:39)
[2017-08-14] MEDS: insulin Lispro (HumaLOG) vial - multi-dose SQ SCH ×2 (13:00→19:04)
[2017-08-14] MEDS: ceFAZolin 1GM/D5W- ADD-VANTAGE 50 ML IV SCH (16:03)
[2017-08-14 17:41] LABS: BASOPHILS % (AUTO) 0.5 % (0-1); EOSINOPHILS # (AUTO) 0.2 X10'3 (0-0.9); HEMATOCRIT 25.3 % (35.0-45.0); HEMOGLOBIN 8.5 g/dl (12.0-16.0); LYMPHOCYTES # (AUTO) 0.6 X10'3 (1.1-4.8); LYMPHOCYTES % (AUTO) 6.7 % (21-51); MEAN CORPUSCULAR HGB CONC 33.5 % (33.0-36.5); MEAN CORPUSCULAR VOLUME 92.4 FL (78-98); MEAN PLATELET VOLUME 9.9 FL (7.4-10.4); MONOCYTES # (AUTO) 0.9 X10'3 (0-0.9); MONOCYTES % (AUTO) 9.4 % (2-12); NEUTROPHILS # (AUTO) 7.8 X10'3 (1.8-7.7); NEUTROPHILS % (AUTO) 81.4 % (42-75); PLATELET COUNT 105 X10'3 (140-440); RED BLOOD COUNT 2.74 X10'6 (4.20-5.60); RED CELL DISTRIBUTION WIDTH 15.9 % (11.5-14.5); WHITE BLOOD COUNT 9.6 X10'3 (4.5-11.0)
[2017-08-14 17:53] LABS: ALBUMIN 2.3 G/DL (3.4-5.0); ANION GAP 6 (8-16); BLOOD UREA NITROGEN 36 MG/DL (7-18); CALCIUM 7.9 MG/DL (8.5-10.1); CHLORIDE 105 MMOL/L (99-107); GLUCOSE 130 MG/DL (70-104); POTASSIUM 4.1 MMOL/L (3.5-5.1); SODIUM 136 MMOL/L (135-145); TOTAL CARBON DIOXIDE 25.5 MMOL/L (24-32); eGFR 24 ML/MIN
[2017-08-14 18:38] LABS: MAGNESIUM 2.5 MG/DL (1.5-2.4)
[2017-08-14] MEDS: docusate sod 100mg capsule PO SCH (20:00)
[2017-08-14] MEDS: vancomycin/NS 1 GM ADD-VANTAGE 250 ML IV SCH (20:02)
[2017-08-14] MEDS: mupirocin 2% nasal ointment 1gm UD NS SCH (20:02)
[2017-08-14] MEDS: potassium Cl 20mEq/100mL bag 100 ML IV PRN (20:16)
[2017-08-14] MEDS: albumin (Human) 5% 250ml 250 ML IV PRN (21:00)
[2017-08-14] MEDS: morphine 4 MG/ML inj SYRINge IV PRN (22:35)
[2017-08-15] VITALS (24 sets, daily range): BP systolic 104–152; BP diastolic 48–72
[2017-08-15] MEDS: ceFAZolin 1GM/D5W- ADD-VANTAGE 50 ML IV SCH ×3 (00:22→16:03)
[2017-08-15] MEDS: albumin (Human) 5% 250ml 250 ML IV PRN (00:40)
[2017-08-15 02:27] LABS: BASOPHILS % (AUTO) 0.2 % (0-1); EOSINOPHILS # (AUTO) 0.1 X10'3 (0-0.9); EOSINOPHILS % (AUTO) 0.5 % (0-6); HEMATOCRIT 25.9 % (35.0-45.0); HEMOGLOBIN 8.7 g/dl (12.0-16.0); LYMPHOCYTES # (AUTO) 0.4 X10'3 (1.1-4.8); LYMPHOCYTES % (AUTO) 2.9 % (21-51); MEAN CORPUSCULAR HEMOGLOBIN 31.1 PG (27.0-31.0); MEAN CORPUSCULAR HGB CONC 33.6 % (33.0-36.5); MEAN CORPUSCULAR VOLUME 92.6 FL (78-98); MEAN PLATELET VOLUME 10.1 FL (7.4-10.4); MONOCYTES # (AUTO) 1.1 X10'3 (0-0.9); MONOCYTES % (AUTO) 7.9 % (2-12); NEUTROPHILS # (AUTO) 12.7 X10'3 (1.8-7.7); NEUTROPHILS % (AUTO) 88.5 % (42-75); PLATELET COUNT 102 X10'3 (140-440); RED CELL DISTRIBUTION WIDTH 16.4 % (11.5-14.5); WHITE BLOOD COUNT 14.4 X10'3 (4.5-11.0)
[2017-08-15 02:36] LABS: INR 1.2 INR; PARTIAL THROMBOPLASTIN TIME 31 SECONDS (22-32); PROTHROMBIN TIME 12.7 SECONDS (9.0-12.0)
[2017-08-15 02:39] LABS: ALANINE AMINOTRANSFERASE 14 U/L (12-78); ALBUMIN 2.8 G/DL (3.4-5.0); ALBUMIN/GLOBULIN RATIO 0.8 (1.1-1.5); ALKALINE PHOSPHATASE 160 IU/L (46-116); ANION GAP 7 (8-16); ASPARTATE AMINO TRANSFERASE 26 U/L (10-37); BILIRUBIN,TOTAL 1.8 MG/DL (0.1-1.0); BLOOD UREA NITROGEN 34 MG/DL (7-18); BUN/CREATININE RATIO 17.2 (6.6-38.0); CALCIUM 7.9 MG/DL (8.5-10.1); CHLORIDE 106 MMOL/L (99-107); CREATININE 1.98 MG/DL (0.40-0.90); GLUCOSE 123 MG/DL (70-104); MAGNESIUM 2.6 MG/DL (1.5-2.4); PHOSPHORUS 4.5 MG/DL (2.3-4.5); SODIUM 138 MMOL/L (135-145); TOTAL CARBON DIOXIDE 24.7 MMOL/L (24-32); TOTAL PROTEIN 6.4 G/DL (6.4-8.2); eGFR 25 ML/MIN
[2017-08-15 03:16] LABS: ABG BASE EXCESS -1.8 mmol/L (-2.0-3.0); ABG HCO3 21.9 mmol/L (22.0-26.0); ABG OXYGEN SATURATION 96.8 % (95-98); ABG PCO2 (T) 31.5 mmHg (32.0-45.0); ABG PH (T) 7.455 (7.350-7.450); ABG PO2 (T) 90.8 mmHg (83-108); FCOHb 0.3 % (0.5-1.5); FMetHb 0.2 % (0.3-1.12); FO2Hb 96.3 % (94-100); MINUTE VOLUME 6 L/min; PATIENT TEMPERATURE 36.1; PEEP 5 cm H2O; RESPIRATORY RATE 0 b/min; RESPIRATORY RATE (OBSERVED) 17 b/min; TIDAL VOLUME 331 mL; TOTAL HEMOGLOBIN 9.5 G/dl (12.0-16.0)
[2017-08-15] MEDS: potassium Cl 20mEq/100mL bag 100 ML IV PRN (03:33)
[2017-08-15] MEDS: insulin regular, human inj. 100 UNITS in normal saline 100ml IV soln 100 ML IV SCH ×2 (05:30)
[2017-08-15] MEDS: docusate sod 100mg capsule PO SCH ×2 (07:23→18:44)
[2017-08-15] MEDS: metoprolol tartrate 12.5mg (1/2 tablet) PO SCH ×2 (07:35→20:40)
[2017-08-15] MEDS: pantoprazole 40mg Tablet.DR PO SCH (07:35)
[2017-08-15] MEDS: mupirocin 2% nasal ointment 1gm UD NS SCH ×2 (07:35→20:34)
[2017-08-15] MEDS: gabapentin 100mg capsule PO SCH ×3 (07:38→20:40)
[2017-08-15] MEDS: morphine 4 MG/ML inj SYRINge IV PRN (07:39)
[2017-08-15] MEDS ORDERED: aspirin 325mg tablet, delayed-release (Ecotrin) PO SCH (08:00)
[2017-08-15] MEDS ORDERED: atorvastatin 10mg tablet PO SCH (08:00)
[2017-08-15] MEDS ORDERED: furosemide 40mg/4ml inj IV ONE (08:15)
[2017-08-15] MEDS: vancomycin/NS 1 GM ADD-VANTAGE 250 ML IV SCH ×2 (08:47→20:33)
[2017-08-15] MEDS: insulin Lispro (HumaLOG) vial - multi-dose SQ SCH ×3 (09:00→18:00)
[2017-08-16] VITALS (24 sets, daily range): BP systolic 89–131; BP diastolic 48–81
[2017-08-16] MEDS ORDERED: dextrose ORAL solution 15 GM/59 ML bottle PO PRN ×2 (00:25)
[2017-08-16] MEDS ORDERED: glucagon, human recombinant 1mg kit SUBCUT PRN (00:25)
[2017-08-16] MEDS ORDERED: dextrose 50%-water 50ml dispensing syringe IV PRN ×2 (00:25)
[2017-08-16] MEDS: ceFAZolin 1GM/D5W- ADD-VANTAGE 50 ML IV SCH (00:37)
[2017-08-16 03:05] LABS: BASOPHILS % (AUTO) 0.2 % (0-1); EOSINOPHILS # (AUTO) 0.3 X10'3 (0-0.9); EOSINOPHILS % (AUTO) 1.8 % (0-6); HEMOGLOBIN 9.4 g/dl (12.0-16.0); LYMPHOCYTES # (AUTO) 0.6 X10'3 (1.1-4.8); LYMPHOCYTES % (AUTO) 3.3 % (21-51); MEAN CORPUSCULAR HEMOGLOBIN 31.3 PG (27.0-31.0); MEAN CORPUSCULAR HGB CONC 33.5 % (33.0-36.5); MEAN CORPUSCULAR VOLUME 93.4 FL (78-98); MEAN PLATELET VOLUME 9.8 FL (7.4-10.4); MONOCYTES # (AUTO) 1.5 X10'3 (0-0.9); MONOCYTES % (AUTO) 8.7 % (2-12); NEUTROPHILS # (AUTO) 14.7 X10'3 (1.8-7.7); PLATELET COUNT 108 X10'3 (140-440); RED CELL DISTRIBUTION WIDTH 16.5 % (11.5-14.5); WHITE BLOOD COUNT 17.1 X10'3 (4.5-11.0)
[2017-08-16 03:18] LABS: ALBUMIN 2.7 G/DL (3.4-5.0); ANION GAP 9 (8-16); BLOOD UREA NITROGEN 34 MG/DL (7-18); BUN/CREATININE RATIO 17.4 (6.6-38.0); CALCIUM 8.1 MG/DL (8.5-10.1); CHLORIDE 104 MMOL/L (99-107); CREATININE 1.95 MG/DL (0.40-0.90); GLUCOSE 179 MG/DL (70-104); MAGNESIUM 2.5 MG/DL (1.5-2.4); PHOSPHORUS 4.9 MG/DL (2.3-4.5); POTASSIUM 4.5 MMOL/L (3.5-5.1); SODIUM 136 MMOL/L (135-145); TOTAL CARBON DIOXIDE 23.5 MMOL/L (24-32); eGFR 25 ML/MIN
[2017-08-16] MEDS ORDERED: oxyCODONE/APAP 5-325mg tablet PO PRN (07:15)
[2017-08-16] MEDS: furosemide 20MG tablet PO SCH ×2 (07:51→20:51)
[2017-08-16] MEDS: gabapentin 100mg capsule PO SCH ×3 (07:51→20:52)
[2017-08-16] MEDS: metoprolol tartrate 12.5mg (1/2 tablet) PO SCH ×3 (07:51→20:51)
[2017-08-16] MEDS: pantoprazole 40mg Tablet.DR PO SCH (07:51)
[2017-08-16] MEDS: aspirin 81mg tablet.DR PO SCH (07:52)
[2017-08-16] MEDS: docusate sod 100mg capsule PO SCH ×2 (08:00→18:40)
[2017-08-16] MEDS: insulin Lispro (HumaLOG) vial - multi-dose SQ SCH ×3 (08:32→19:21)
[2017-08-16] MEDS: mupirocin 2% nasal ointment 1gm UD NS SCH (08:33)
[2017-08-16] MEDS: sodium chloride 0.45% 1,000 ML IV SCH (10:56)
[2017-08-16] MEDS: oxyCODONE/APAP 5-325mg tablet PO PRN (19:50)
[2017-08-16] MEDS: insulin glargine (Lantus) pen - multi-dose SQ SCH (20:58)
[2017-08-16] MEDS ORDERED: metoprolol tartrate 12.5mg (1/2 tablet) PO ONE (21:10)
[2017-08-17] VITALS (24 sets, daily range): BP systolic 81–133; BP diastolic 46–79
[2017-08-17 04:40] LABS: BASOPHILS % (AUTO) 0.1 % (0-1); EOSINOPHILS # (AUTO) 0.4 X10'3 (0-0.9); EOSINOPHILS % (AUTO) 2.7 % (0-6); HEMOGLOBIN 8.8 g/dl (12.0-16.0); LYMPHOCYTES # (AUTO) 0.7 X10'3 (1.1-4.8); LYMPHOCYTES % (AUTO) 5.5 % (21-51); MEAN CORPUSCULAR HEMOGLOBIN 30.4 PG (27.0-31.0); MEAN CORPUSCULAR HGB CONC 32.8 % (33.0-36.5); MEAN CORPUSCULAR VOLUME 92.9 FL (78-98); MEAN PLATELET VOLUME 9.8 FL (7.4-10.4); MONOCYTES # (AUTO) 1.4 X10'3 (0-0.9); MONOCYTES % (AUTO) 10.4 % (2-12); NEUTROPHILS # (AUTO) 10.8 X10'3 (1.8-7.7); NEUTROPHILS % (AUTO) 81.3 % (42-75); PLATELET COUNT 126 X10'3 (140-440); RED BLOOD COUNT 2.91 X10'6 (4.20-5.60); RED CELL DISTRIBUTION WIDTH 16.6 % (11.5-14.5); WHITE BLOOD COUNT 13.3 X10'3 (4.5-11.0)
[2017-08-17 05:11] LABS: ALBUMIN 2.2 G/DL (3.4-5.0); ANION GAP 8 (8-16); BLOOD UREA NITROGEN 38 MG/DL (7-18); CHLORIDE 103 MMOL/L (99-107); GLUCOSE 171 MG/DL (70-104); MAGNESIUM 2.4 MG/DL (1.5-2.4); SODIUM 135 MMOL/L (135-145); TOTAL CARBON DIOXIDE 24.3 MMOL/L (24-32); eGFR 24 ML/MIN
[2017-08-17 05:17] LABS: POTASSIUM 4.3 MMOL/L (3.5-5.1)
[2017-08-17] MEDS: docusate sod 100mg capsule PO SCH ×2 (07:47→20:19)
[2017-08-17] MEDS: gabapentin 100mg capsule PO SCH ×3 (08:09→20:17)
[2017-08-17] MEDS: pantoprazole 40mg Tablet.DR PO SCH (08:09)
[2017-08-17] MEDS: furosemide 20MG tablet PO SCH ×2 (08:09→20:18)
[2017-08-17] MEDS: metoprolol tartrate 12.5mg (1/2 tablet) PO SCH ×2 (08:09→20:18)
[2017-08-17] MEDS: aspirin 81mg tablet.DR PO SCH (08:09)
[2017-08-17] MEDS: insulin Lispro (HumaLOG) vial - multi-dose SQ SCH ×3 (08:58→19:15)
[2017-08-17] MEDS: insulin glargine (Lantus) pen - multi-dose SQ SCH (21:00)
[2017-08-17] MEDS: oxyCODONE/APAP 5-325mg tablet PO PRN (23:37)
[2017-08-18] VITALS (24 sets, daily range): BP systolic 14–143; BP diastolic 47–86
[2017-08-18 04:04] LABS: BASOPHILS % (AUTO) 0.3 % (0-1); EOSINOPHILS # (AUTO) 0.4 X10'3 (0-0.9); EOSINOPHILS % (AUTO) 3.8 % (0-6); HEMATOCRIT 26.6 % (35.0-45.0); HEMOGLOBIN 8.9 g/dl (12.0-16.0); LYMPHOCYTES # (AUTO) 0.9 X10'3 (1.1-4.8); LYMPHOCYTES % (AUTO) 8.6 % (21-51); MEAN CORPUSCULAR HEMOGLOBIN 31.1 PG (27.0-31.0); MEAN CORPUSCULAR HGB CONC 33.7 % (33.0-36.5); MEAN CORPUSCULAR VOLUME 92.2 FL (78-98); MEAN PLATELET VOLUME 9.1 FL (7.4-10.4); MONOCYTES # (AUTO) 1.4 X10'3 (0-0.9); MONOCYTES % (AUTO) 13.4 % (2-12); NEUTROPHILS # (AUTO) 7.7 X10'3 (1.8-7.7); NEUTROPHILS % (AUTO) 73.9 % (42-75); PLATELET COUNT 147 X10'3 (140-440); RED BLOOD COUNT 2.88 X10'6 (4.20-5.60); RED CELL DISTRIBUTION WIDTH 16.7 % (11.5-14.5); WHITE BLOOD COUNT 10.5 X10'3 (4.5-11.0)
[2017-08-18 04:21] LABS: ALBUMIN 2.1 G/DL (3.4-5.0); ANION GAP 8 (8-16); BLOOD UREA NITROGEN 36 MG/DL (7-18); BUN/CREATININE RATIO 20.2 (6.6-38.0); CALCIUM 7.8 MG/DL (8.5-10.1); CHLORIDE 105 MMOL/L (99-107); CREATININE 1.78 MG/DL (0.40-0.90); GLUCOSE 119 MG/DL (70-104); PHOSPHORUS 3.5 MG/DL (2.3-4.5); POTASSIUM 3.9 MMOL/L (3.5-5.1); SODIUM 137 MMOL/L (135-145); TOTAL CARBON DIOXIDE 24.2 MMOL/L (24-32); eGFR 28 ML/MIN
[2017-08-18] MEDS ORDERED: simethicone 80mg chew tab PO PRN (06:25)
[2017-08-18] MEDS: docusate sod 100mg capsule PO SCH ×2 (08:00→21:11)
[2017-08-18] MEDS: pantoprazole 40mg Tablet.DR PO SCH (08:20)
[2017-08-18] MEDS: aspirin 81mg tablet.DR PO SCH (08:20)
[2017-08-18] MEDS: gabapentin 100mg capsule PO SCH ×3 (08:20→21:11)
[2017-08-18] MEDS: furosemide 20MG tablet PO SCH ×2 (08:20→21:11)
[2017-08-18] MEDS: insulin Lispro (HumaLOG) vial - multi-dose SQ SCH ×3 (08:57→20:03)
[2017-08-18] MEDS: sodium chloride 0.45% 1,000 ML IV SCH (10:32)
[2017-08-18] MEDS: oxyCODONE/APAP 5-325mg tablet PO PRN (19:53)
[2017-08-18] MEDS: insulin glargine (Lantus) pen - multi-dose SQ SCH (21:18)
[2017-08-19] VITALS (17 sets, daily range): BP systolic 104–177; BP diastolic 51–90
[2017-08-19 06:58] LABS: MAGNESIUM 1.8 MG/DL (1.5-2.4); PHOSPHORUS 3.7 MG/DL (2.3-4.5); POTASSIUM 4.3 MMOL/L (3.5-5.1)
[2017-08-19] MEDS: docusate sod 100mg capsule PO SCH ×2 (07:24→20:31)
[2017-08-19] MEDS: aspirin 81mg tablet.DR PO SCH (07:25)
[2017-08-19] MEDS: gabapentin 100mg capsule PO SCH ×3 (07:25→20:32)
[2017-08-19] MEDS: pantoprazole 40mg Tablet.DR PO SCH (07:25)
[2017-08-19] MEDS: furosemide 20MG tablet PO SCH ×2 (07:26→20:31)
[2017-08-19] MEDS: oxyCODONE/APAP 5-325mg tablet PO PRN (07:41)
[2017-08-19] MEDS: insulin Lispro (HumaLOG) vial - multi-dose SQ SCH ×3 (08:36→19:15)
[2017-08-19] MEDS ORDERED: magnesium citrate 296ml oral solution PO ONE (09:40)
[2017-08-19] MEDS ORDERED: magnesium 4gm in 100ml NS 100 ML IV PRN (09:50)
[2017-08-19] MEDS ORDERED: magnesium 1gm/100ml D5W IVPB 50 ML IV PRN (09:50)
[2017-08-19] MEDS ORDERED: potassium Cl 20 mEq SR tablet PO PRN ×2 (09:50)
[2017-08-19] MEDS ORDERED: magnesium Cl slow-release 64mg tablet PO PRN (09:50)
[2017-08-19] MEDS ORDERED: potassium Cl 40MEQ/NS 500ml 500 ML IV PRN ×2 (09:50)
[2017-08-19 12:03] LABS: ALANINE AMINOTRANSFERASE 16 U/L (12-78); ALBUMIN 2.2 G/DL (3.4-5.0); ALBUMIN/GLOBULIN RATIO 0.5 (1.1-1.5); ALKALINE PHOSPHATASE 222 IU/L (46-116); ANION GAP 12 (8-16); ASPARTATE AMINO TRANSFERASE 23 U/L (10-37); BILIRUBIN,TOTAL 1.1 MG/DL (0.1-1.0); BLOOD UREA NITROGEN 37 MG/DL (7-18); BUN/CREATININE RATIO 21.5 (6.6-38.0); CALCIUM 8.3 MG/DL (8.5-10.1); CHLORIDE 104 MMOL/L (99-107); CREATININE 1.72 MG/DL (0.40-0.90); GLUCOSE 130 MG/DL (70-104); SODIUM 138 MMOL/L (135-145); TOTAL CARBON DIOXIDE 22.1 MMOL/L (24-32); TOTAL PROTEIN 6.6 G/DL (6.4-8.2); eGFR 29 ML/MIN
[2017-08-19] MEDS ORDERED: dextrose ORAL solution 15 GM/59 ML bottle PO PRN ×2 (13:05)
[2017-08-19] MEDS ORDERED: dextrose 50%-water 50ml dispensing syringe IV PRN ×2 (13:05)
[2017-08-19] MEDS ORDERED: glucagon, human recombinant 1mg kit SUBCUT PRN (13:05)
[2017-08-19] MEDS: magnesium Cl slow-release 64mg tablet PO SCH (20:31)
[2017-08-19] MEDS: potassium Cl 20 mEq SR tablet PO SCH (20:31)
[2017-08-19] MEDS: lisinopril 10 MG tablet PO SCH (20:32)
[2017-08-19] MEDS: insulin glargine (Lantus) pen - multi-dose SQ SCH (20:43)
[2017-08-20] MEDS: oxyCODONE/APAP 5-325mg tablet PO PRN ×3 (00:45→19:44)
[2017-08-20 03:00] VITALS: BP 153/68
[2017-08-20 05:40] LABS: BASOPHILS # (AUTO) 0.1 X10'3 (0-0.2); BASOPHILS % (AUTO) 0.9 % (0-1); EOSINOPHILS # (AUTO) 0.3 X10'3 (0-0.9); EOSINOPHILS % (AUTO) 3.5 % (0-6); HEMATOCRIT 28.5 % (35.0-45.0); HEMOGLOBIN 9.5 g/dl (12.0-16.0); LYMPHOCYTES % (AUTO) 13.1 % (21-51); MEAN CORPUSCULAR HEMOGLOBIN 30.8 PG (27.0-31.0); MEAN CORPUSCULAR HGB CONC 33.5 % (33.0-36.5); MEAN CORPUSCULAR VOLUME 91.9 FL (78-98); MEAN PLATELET VOLUME 7.9 FL (7.4-10.4); MONOCYTES # (AUTO) 1.2 X10'3 (0-0.9); NEUTROPHILS # (AUTO) 4.9 X10'3 (1.8-7.7); NEUTROPHILS % (AUTO) 66.5 % (42-75); PLATELET COUNT 194 X10'3 (140-440); RED CELL DISTRIBUTION WIDTH 16.6 % (11.5-14.5); WHITE BLOOD COUNT 7.4 X10'3 (4.5-11.0)
[2017-08-20 06:20] LABS: ALBUMIN 2.2 G/DL (3.4-5.0); ANION GAP 9 (8-16); BLOOD UREA NITROGEN 34 MG/DL (7-18); BUN/CREATININE RATIO 21.9 (6.6-38.0); CALCIUM 8.7 MG/DL (8.5-10.1); CHLORIDE 106 MMOL/L (99-107); CREATININE 1.55 MG/DL (0.40-0.90); GLUCOSE 130 MG/DL (70-104); MAGNESIUM 1.9 MG/DL (1.5-2.4); SODIUM 140 MMOL/L (135-145); eGFR 33 ML/MIN
[2017-08-20 07:00] VITALS: BP 150/97
[2017-08-20] MEDS: K and/or MAG REPLACEMENT MC SCH (08:00)
[2017-08-20] MEDS: potassium Cl 20 mEq SR tablet PO SCH ×2 (08:00→19:50)
[2017-08-20] MEDS: docusate sod 100mg capsule PO SCH ×2 (08:08→19:43)
[2017-08-20] MEDS: levoTHYROXINE 25mcg tablet PO SCH (08:08)
[2017-08-20] MEDS: gabapentin 100mg capsule PO SCH ×3 (08:08→20:54)
[2017-08-20] MEDS: pantoprazole 40mg Tablet.DR PO SCH (08:08)
[2017-08-20] MEDS: aspirin 81mg tablet.DR PO SCH (08:08)
[2017-08-20] MEDS: magnesium Cl slow-release 64mg tablet PO SCH ×2 (08:08→19:43)
[2017-08-20] MEDS: furosemide 20MG tablet PO SCH ×2 (08:08→19:43)
[2017-08-20] MEDS: insulin Lispro (HumaLOG) vial - multi-dose SQ SCH ×3 (08:24→18:52)
[2017-08-20 11:00] VITALS: BP 128/61
[2017-08-20 15:00] VITALS: BP 131/54
[2017-08-20 18:00] VITALS: BP 169/69
[2017-08-20] MEDS: lisinopril 10 MG tablet PO SCH (20:54)
[2017-08-20] MEDS: insulin glargine (Lantus) pen - multi-dose SQ SCH (21:03)
[2017-08-20 22:00] VITALS: BP 122/55
[2017-08-21 03:00] VITALS: BP 121/57
[2017-08-21 05:08] LABS: BASOPHILS # (AUTO) 0.1 X10'3 (0-0.2); BASOPHILS % (AUTO) 1.1 % (0-1); EOSINOPHILS # (AUTO) 0.3 X10'3 (0-0.9); EOSINOPHILS % (AUTO) 4.3 % (0-6); HEMATOCRIT 28.6 % (35.0-45.0); HEMOGLOBIN 9.4 g/dl (12.0-16.0); LYMPHOCYTES # (AUTO) 0.9 X10'3 (1.1-4.8); LYMPHOCYTES % (AUTO) 13.4 % (21-51); MEAN CORPUSCULAR HEMOGLOBIN 30.7 PG (27.0-31.0); MEAN CORPUSCULAR HGB CONC 33.1 % (33.0-36.5); MEAN CORPUSCULAR VOLUME 92.8 FL (78-98); MEAN PLATELET VOLUME 7.3 FL (7.4-10.4); MONOCYTES % (AUTO) 16.3 % (2-12); NEUTROPHILS # (AUTO) 4.1 X10'3 (1.8-7.7); NEUTROPHILS % (AUTO) 64.9 % (42-75); PLATELET COUNT 203 X10'3 (140-440); RED BLOOD COUNT 3.08 X10'6 (4.20-5.60); WHITE BLOOD COUNT 6.4 X10'3 (4.5-11.0)
[2017-08-21 05:26] LABS: ALBUMIN 2.3 G/DL (3.4-5.0); ANION GAP 7 (8-16); BLOOD UREA NITROGEN 33 MG/DL (7-18); BUN/CREATININE RATIO 22.3 (6.6-38.0); CALCIUM 8.6 MG/DL (8.5-10.1); CHLORIDE 105 MMOL/L (99-107); CREATININE 1.48 MG/DL (0.40-0.90); GLUCOSE 139 MG/DL (70-104); POTASSIUM 4.6 MMOL/L (3.5-5.1); SODIUM 140 MMOL/L (135-145); eGFR 35 ML/MIN
[2017-08-21 07:00] VITALS: BP 149/80
[2017-08-21] MEDS: aspirin 81mg tablet.DR PO SCH (07:46)
[2017-08-21] MEDS: docusate sod 100mg capsule PO SCH (07:46)
[2017-08-21] MEDS: furosemide 20MG tablet PO SCH (07:46)
[2017-08-21] MEDS: gabapentin 100mg capsule PO SCH ×2 (07:46→12:51)
[2017-08-21] MEDS: levoTHYROXINE 25mcg tablet PO SCH (07:46)
[2017-08-21] MEDS: magnesium Cl slow-release 64mg tablet PO SCH (07:47)
[2017-08-21] MEDS: pantoprazole 40mg Tablet.DR PO SCH (07:47)
[2017-08-21] MEDS: K and/or MAG REPLACEMENT MC SCH (07:47)
[2017-08-21] MEDS: potassium Cl 20 mEq SR tablet PO SCH (07:47)
[2017-08-21] MEDS: oxyCODONE/APAP 5-325mg tablet PO PRN (08:22)
[2017-08-21] MEDS: insulin Lispro (HumaLOG) vial - multi-dose SQ SCH ×2 (08:25→12:53)
[2017-08-21] MEDS ORDERED: FURO20TA4 PO (09:37)
[2017-08-21] MEDS ORDERED: COL100C PO (09:37)
[2017-08-21] MEDS ORDERED: ASPI-1071 PO (09:37)
[2017-08-21] MEDS ORDERED: PER5325T PO (09:37)
[2017-08-21] MEDS ORDERED: LEVO25TA7 PO (09:37)
[2017-08-21] MEDS ORDERED: GABA100C PO (09:37)
== END 2017-08-21 13:00 | disposition home health service (06) | DRG 270 ==
LOC: ER 18:26 → PCU 3S 21:37 → CMPBEDREQ 08-09 00:31 → OBSVTOIN 08-09 14:00 → PACU 08-14 08:01 → ICU 2S 08-14 09:57 → CICU 2S 08-17 06:30 → PCU 3S 08-19 14:20
PROVIDERS: ADMIT Hospitalist; ATTEND Thoracic Surgery (Cardiothoracic Vascular Surgery)
PROC: B32T1ZZ Computerized Tomography (CT Scan) of Left Pulmonary Artery using Low Osmolar Contrast (ICD-10-PCS; 2017-08-08)
PROC: B3201ZZ Computerized Tomography (CT Scan) of Thoracic Aorta using Low Osmolar Contrast (ICD-10-PCS; 2017-08-08)
PROC: B32S1ZZ Computerized Tomography (CT Scan) of Right Pulmonary Artery using Low Osmolar Contrast (ICD-10-PCS; 2017-08-08)
PROC: 4A023N8 Measurement of Cardiac Sampling and Pressure, Bilateral, Percutaneous Approach (ICD-10-PCS; 2017-08-09)
PROC: B2111ZZ Fluoroscopy of Multiple Coronary Arteries using Low Osmolar Contrast (ICD-10-PCS; 2017-08-09)
PROC: B2151ZZ Fluoroscopy of Left Heart using Low Osmolar Contrast (ICD-10-PCS; 2017-08-09)
PROC: B246ZZ4 Ultrasonography of Right and Left Heart, Transesophageal (ICD-10-PCS; 2017-08-14)
PROC: 05HM33Z Insertion of Infusion Device into Right Internal Jugular Vein, Percutaneous Approach (ICD-10-PCS; 2017-08-14)
PROC: 02BN0ZZ Excision of Pericardium, Open Approach (ICD-10-PCS; principal; 2017-08-14 06:55)
DX: I31.1 Chronic constrictive pericarditis (principal); I50.33 Acute on chronic diastolic (congestive) heart failure; N17.9 Acute kidney failure, unspecified; I13.0 Hypertensive heart and chronic kidney disease with heart failure and stage 1 through stage 4 chronic kidney disease, or unspecified chronic kidney disease; I85.10 Secondary esophageal varices without bleeding; I25.10 Atherosclerotic heart disease of native coronary artery without angina pectoris; I44.7 Left bundle-branch block, unspecified; E11.42 Type 2 diabetes mellitus with diabetic polyneuropathy; E03.9 Hypothyroidism, unspecified; E66.9 Obesity, unspecified; M19.90 Unspecified osteoarthritis, unspecified site; R00.1 Bradycardia, unspecified; E11.319 Type 2 diabetes mellitus with unspecified diabetic retinopathy without macular edema; R19.7 Diarrhea, unspecified; R33.9 Retention of urine, unspecified; E11.22 Type 2 diabetes mellitus with diabetic chronic kidney disease; E11.21 Type 2 diabetes mellitus with diabetic nephropathy; E78.5 Hyperlipidemia, unspecified; K59.00 Constipation, unspecified; K74.60 Unspecified cirrhosis of liver; N18.3 Chronic kidney disease, stage 3 (moderate); Z90.710 Acquired absence of both cervix and uterus; Z90.49 Acquired absence of other specified parts of digestive tract; Z88.5 Allergy status to narcotic agent; Z88.8 Allergy status to other drugs, medicaments and biological substances; Z79.4 Long term (current) use of insulin; Z79.899 Other long term (current) drug therapy; Z87.442 Personal history of urinary calculi; Z68.37 Body mass index [BMI] 37.0-37.9, adult
CPT/HCPCS: 0232T; 36415; 36600; 71045; 71046; 71275; 80048; 80053; 80061; 81001; 82140; 82330; 82435; 82570; 82803; 82947; 82948; 83036; 83735; 83880; 84100; 84132; 84133; 84156; 84295; 84300; 84439; 84443; 84484; 85014; 85018; 85025; 85347; 85379; 85384; 85610; 85730; 86885; 86900; 86901; 86920; 87070; 87077; 87088; 87186; 88305; 88311; 93005; 93306; 93325; 93460; 93880; 93971; 94002; 94010; 94150; 94668; 94760; 96365; 97110; 97116; 97161; 97530; 99152; 99153; 99285; A4315; A4353; A4620; A6212; A6213; A6255; A6257; A6258; A6402; A6449; A7000; A7048; C1751; C1769; G0378; J0690; J1200; J1250; J1644; J1815; J1940; J2060; J2250; J2270; J2405; J2704; J3010; J3370; J3480; J3490; J7030; J7120; P9045; Q9967

== ENCOUNTER 2017-12-08 15:47 | Emergency (ER) | payer MEDICARE, BC ==
[~2017-12-08] VITALS: Ht 160 cm; Wt 76.0 kg
[~2017-12-08 15:47] MED LIST: ASPI-1071 PO; COL100C PO; FURO20TA4 PO; GABA100C PO; INSU100V12 SQ; LEVO25TA7 PO; LISI-600 PO; PER5325T PO
[2017-12-08 16:36] LABS: BASOPHILS % (AUTO) 0.2 % (0-1); EOSINOPHILS # (AUTO) 0.4 X10'3 (0-0.9); EOSINOPHILS % (AUTO) 6.2 % (0-6); HEMATOCRIT 37.7 % (35.0-45.0); HEMOGLOBIN 12.8 g/dl (12.0-16.0); LYMPHOCYTES # (AUTO) 1.2 X10'3 (1.1-4.8); LYMPHOCYTES % (AUTO) 16.1 % (21-51); MEAN CORPUSCULAR HEMOGLOBIN 30.9 PG (27.0-31.0); MEAN CORPUSCULAR HGB CONC 33.9 % (33.0-36.5); MEAN CORPUSCULAR VOLUME 91.1 FL (78-98); MEAN PLATELET VOLUME 8.5 FL (7.4-10.4); MONOCYTES # (AUTO) 0.7 X10'3 (0-0.9); MONOCYTES % (AUTO) 9.4 % (2-12); NEUTROPHILS # (AUTO) 4.9 X10'3 (1.8-7.7); NEUTROPHILS % (AUTO) 68.1 % (42-75); PLATELET COUNT 199 X10'3 (140-440); RED BLOOD COUNT 4.14 X10'6 (4.20-5.60); RED CELL DISTRIBUTION WIDTH 14.3 % (11.5-14.5); WHITE BLOOD COUNT 7.2 X10'3 (4.5-11.0)
[2017-12-08 16:49] LABS: ALANINE AMINOTRANSFERASE 37 U/L (12-78); ALBUMIN 3.2 G/DL (3.4-5.0); ALBUMIN/GLOBULIN RATIO 0.6 (1.1-1.5); ALKALINE PHOSPHATASE 391 IU/L (46-116); ANION GAP 10 (8-16); ASPARTATE AMINO TRANSFERASE 34 U/L (10-37); BILIRUBIN,TOTAL 0.7 MG/DL (0.1-1.0); BLOOD UREA NITROGEN 21 MG/DL (7-18); BUN/CREATININE RATIO 16.4 (6.6-38.0); CALCIUM 9.3 MG/DL (8.5-10.1); CHLORIDE 101 MMOL/L (99-107); CREATININE 1.28 MG/DL (0.40-0.90); GLUCOSE 293 MG/DL (70-104); SODIUM 137 MMOL/L (135-145); TOTAL CARBON DIOXIDE 25.8 MMOL/L (24-32); TOTAL PROTEIN 8.5 G/DL (6.4-8.2); eGFR 41 ML/MIN
[2017-12-08 17:02] LABS: PROTHROMBIN TIME 10.4 SECONDS (9.0-12.0)
[2017-12-08 17:03] LABS: PARTIAL THROMBOPLASTIN TIME 27 SECONDS (22-32)
[2017-12-08] MEDS ORDERED: cloNIDine 0.1 mg tablet PO ONE (17:10)
[2017-12-08 17:26] VITALS: BP 161/80
== END 2017-12-08 17:27 | disposition home or self-care (01) ==
LOC: ER 15:47
DX: I10 Essential (primary) hypertension (principal); E11.42 Type 2 diabetes mellitus with diabetic polyneuropathy; Z90.49 Acquired absence of other specified parts of digestive tract; Z87.442 Personal history of urinary calculi; Z88.2 Allergy status to sulfonamides; Z79.899 Other long term (current) drug therapy; Z79.82 Long term (current) use of aspirin; Z79.4 Long term (current) use of insulin
CPT/HCPCS: 36415; 71045; 80053; 84484; 85025; 85610; 85730; 93005; 99285

== ENCOUNTER 2018-01-10 10:00 | Day surgery (SDC) | payer MEDICARE, BC ==
[2018-01-09 16:00] LABS: BASOPHILS % (AUTO) 0.1 % (0-1); EOSINOPHILS # (AUTO) 0.4 X10'3 (0-0.9); EOSINOPHILS % (AUTO) 5.1 % (0-6); HEMATOCRIT 37.4 % (35.0-45.0); HEMOGLOBIN 12.5 g/dl (12.0-16.0); LYMPHOCYTES # (AUTO) 1.5 X10'3 (1.1-4.8); LYMPHOCYTES % (AUTO) 20.6 % (21-51); MEAN CORPUSCULAR HEMOGLOBIN 30.7 PG (27.0-31.0); MEAN CORPUSCULAR HGB CONC 33.5 % (33.0-36.5); MEAN CORPUSCULAR VOLUME 91.7 FL (78-98); MEAN PLATELET VOLUME 9.1 FL (7.4-10.4); MONOCYTES # (AUTO) 0.6 X10'3 (0-0.9); MONOCYTES % (AUTO) 8.8 % (2-12); NEUTROPHILS # (AUTO) 4.6 X10'3 (1.8-7.7); NEUTROPHILS % (AUTO) 65.4 % (42-75); PLATELET COUNT 187 X10'3 (140-440); RED BLOOD COUNT 4.08 X10'6 (4.20-5.60); RED CELL DISTRIBUTION WIDTH 14.2 % (11.5-14.5); WHITE BLOOD COUNT 7.1 X10'3 (4.5-11.0)
[2018-01-09 16:05] LABS: ALBUMIN 3.2 G/DL (3.4-5.0); ANION GAP 8 (8-16); BLOOD UREA NITROGEN 22 MG/DL (7-18); BUN/CREATININE RATIO 16.4 (6.6-38.0); CHLORIDE 104 MMOL/L (99-107); CREATININE 1.34 MG/DL (0.40-0.90); GLUCOSE 199 MG/DL (70-104); POTASSIUM 4.3 MMOL/L (3.5-5.1); SODIUM 140 MMOL/L (135-145); TOTAL CARBON DIOXIDE 28.5 MMOL/L (24-32); eGFR 39 ML/MIN
[2018-01-09 16:14] LABS: PROTHROMBIN TIME 10.7 SECONDS (9.0-12.0)
[2018-01-09 16:15] LABS: INR 1.1 INR; PARTIAL THROMBOPLASTIN TIME 27 SECONDS (22-32)
[~2018-01-10] VITALS: Ht 160 cm; Wt 77.4 kg
[2018-01-10] VITALS (13 sets, daily range): BP systolic 120–193; BP diastolic 61–119
[2018-01-10] MEDS ORDERED: sod bicarbonate 150mEq in D5W 1,150 ML IV ONE (10:40)
[2018-01-10] MEDS ORDERED: LIDOcaine/PRILOcaine 5gm cream TP ONE (10:45)
[2018-01-10] MEDS ORDERED: diphenhydrAMINE 25mg capsule PO PRN (10:45)
[2018-01-10] MEDS ORDERED: LORazepam 0.5 MG tablet PO PRN (10:45)
[2018-01-10] MEDS ORDERED: nitroGLYCERIN-Tridil 50MG/D5W 250 ML IV ONE (12:12)
[2018-01-10] MEDS ORDERED: fentaNYL/PF 50MCG/1 ML 2ML syringe ONE (12:12)
[2018-01-10] MEDS ORDERED: verapamil 2.5 mg/ml inj IV ONE ×2 (12:12→13:22)
[2018-01-10] MEDS ORDERED: LIDOcaine 1% (10mg/ml)w/preservative injection 20ml MDV ONE (12:13)
[2018-01-10] MEDS ORDERED: midazolam 2 mg/2 ml injection ONE (12:13)
[2018-01-10] MEDS ORDERED: iohexol 350 MG/ML 50ML vial IV ONE (12:13)
[2018-01-10] MEDS ORDERED: iohexol 350 MG/1 ML 200ml bottle ONE (12:13)
[2018-01-10] MEDS ORDERED: heparin 1,000unit/ml 10ml vial 10 ML ONE (12:13)
[2018-01-10] MEDS ORDERED: heparin 25,000 UNIT/250ml bag 250 ML IV ONE (13:44)
[2018-01-10] MEDS ORDERED: clopidogrel 300mg tablet ONE (14:33)
[2018-01-10] MEDS ORDERED: aspirin 81mg tab.chew PO ONE (16:25)
[2018-01-10] MEDS ORDERED: clopidogrel 300mg tablet PO ONE (16:26)
[2018-01-10] MEDS ORDERED: GABA-530 PO (16:31)
[2018-01-10] MEDS ORDERED: LISI10TA4 PO (16:31)
[2018-01-10] MEDS ORDERED: LEVO25TA7 PO (16:31)
[2018-01-10] MEDS ORDERED: OXYC-593 PO (16:31)
[2018-01-10] MEDS ORDERED: LIRA0.6P2 SUBCUT (16:31)
[2018-01-10] MEDS ORDERED: INSU100V12 SQ (16:31)
[2018-01-10] MEDS: acetylcysteine 200 MG/ml 4ml vial PO SCH ×2 (20:00→20:04)
[2018-01-10] MEDS: sod bicarbonate 150mEq in D5W 1,150 ML IV SCH ×2 (20:09→23:27)
[2018-01-10] MEDS: gabapentin 100mg capsule PO SCH (23:26)
[2018-01-11 02:00] VITALS: BP 114/52
[2018-01-11 05:49] LABS: BASOPHILS % (AUTO) 0.7 % (0-1); EOSINOPHILS # (AUTO) 0.4 X10'3 (0-0.9); EOSINOPHILS % (AUTO) 6.7 % (0-6); HEMATOCRIT 33.4 % (35.0-45.0); HEMOGLOBIN 11.3 g/dl (12.0-16.0); LYMPHOCYTES % (AUTO) 16.4 % (21-51); MEAN CORPUSCULAR HEMOGLOBIN 30.9 PG (27.0-31.0); MEAN CORPUSCULAR HGB CONC 33.9 % (33.0-36.5); MEAN CORPUSCULAR VOLUME 91.4 FL (78-98); MEAN PLATELET VOLUME 8.9 FL (7.4-10.4); MONOCYTES # (AUTO) 0.7 X10'3 (0-0.9); MONOCYTES % (AUTO) 12.3 % (2-12); NEUTROPHILS # (AUTO) 3.8 X10'3 (1.8-7.7); NEUTROPHILS % (AUTO) 63.9 % (42-75); PLATELET COUNT 149 X10'3 (140-440); RED BLOOD COUNT 3.66 X10'6 (4.20-5.60); RED CELL DISTRIBUTION WIDTH 14.2 % (11.5-14.5)
[2018-01-11 05:55] LABS: ALBUMIN 2.5 G/DL (3.4-5.0); ANION GAP 7 (8-16); BLOOD UREA NITROGEN 15 MG/DL (7-18); BUN/CREATININE RATIO 13.3 (6.6-38.0); CALCIUM 8.4 MG/DL (8.5-10.1); CHLORIDE 100 MMOL/L (99-107); CREATININE 1.13 MG/DL (0.40-0.90); GLUCOSE 261 MG/DL (70-104); POTASSIUM 3.8 MMOL/L (3.5-5.1); SODIUM 138 MMOL/L (135-145); eGFR 47 ML/MIN
[2018-01-11 06:00] VITALS: BP 144/64
[2018-01-11] MEDS ORDERED: METO25TA6 PO (06:27)
[2018-01-11] MEDS ORDERED: ASPI81TA52 PO (06:27)
[2018-01-11] MEDS ORDERED: CLOP75TA35 PO (06:27)
[2018-01-11] MEDS ORDERED: ATOR40TA PO (06:27)
[2018-01-11] MEDS ORDERED: lisinopril 10 MG tablet PO SCH (08:00)
[2018-01-11] MEDS ORDERED: metoprolol tartrate 25mg tablet PO SCH (08:00)
[2018-01-11] MEDS ORDERED: clopidogrel 75mg tablet PO SCH (08:00)
[2018-01-11] MEDS ORDERED: levoTHYROXINE 25mcg tablet PO SCH (08:00)
[2018-01-11] MEDS ORDERED: atorvastatin 20mg tablet PO SCH (08:00)
[2018-01-11] MEDS ORDERED: LIRAGLUTIDE SUBCUT SCH (08:00)
[2018-01-11] MEDS ORDERED: aspirin 325mg tablet, delayed-release (Ecotrin) PO SCH (08:00)
[2018-01-11] MEDS ORDERED: oxyCODONE/APAP 5-325mg tablet PO SCH (08:00)
[2018-01-11] MEDS: gabapentin 100mg capsule PO SCH (08:19)
[2018-01-11] MEDS: acetylcysteine 200 MG/ml 4ml vial PO SCH (09:03)
[2018-01-11 10:42] LABS: HEMOGLOBIN A1C 9.6 % (4.5-6.2)
[2018-01-11 11:00] VITALS: BP 109/48
== END 2018-01-11 12:33 | disposition home or self-care (01) ==
LOC: SSTAY O 10:00 → PCU 3S 21:19 → SSTAY O 01-11 12:33
PROVIDERS: ATTEND Internal Medicine Cardiovascular Disease
DX: I25.10 Atherosclerotic heart disease of native coronary artery without angina pectoris (principal); E78.5 Hyperlipidemia, unspecified; I31.1 Chronic constrictive pericarditis; I44.7 Left bundle-branch block, unspecified; I13.0 Hypertensive heart and chronic kidney disease with heart failure and stage 1 through stage 4 chronic kidney disease, or unspecified chronic kidney disease; E11.22 Type 2 diabetes mellitus with diabetic chronic kidney disease; N18.9 Chronic kidney disease, unspecified; I50.30 Unspecified diastolic (congestive) heart failure; E66.3 Overweight; M19.90 Unspecified osteoarthritis, unspecified site; I34.9 Nonrheumatic mitral valve disorder, unspecified; K21.9 Gastro-esophageal reflux disease without esophagitis; E03.9 Hypothyroidism, unspecified; F32.9 Major depressive disorder, single episode, unspecified; Z86.19 Personal history of other infectious and parasitic diseases; Z87.442 Personal history of urinary calculi; Z87.440 Personal history of urinary (tract) infections; Z98.41 Cataract extraction status, right eye; Z98.42 Cataract extraction status, left eye; Z79.82 Long term (current) use of aspirin; Z90.710 Acquired absence of both cervix and uterus; Z90.49 Acquired absence of other specified parts of digestive tract; Z79.891 Long term (current) use of opiate analgesic; Z79.4 Long term (current) use of insulin; Z88.2 Allergy status to sulfonamides; Z68.30 Body mass index [BMI] 30.0-30.9, adult; Z86.74 Personal history of sudden cardiac arrest; Z86.79 Personal history of other diseases of the circulatory system; Z87.09 Personal history of other diseases of the respiratory system; Z88.8 Allergy status to other drugs, medicaments and biological substances; Z98.890 Other specified postprocedural states; Z79.899 Other long term (current) drug therapy
CPT/HCPCS: 36415; 80048; 82948; 83036; 85025; 85347; 85610; 85730; 87070; 93005; 93458; 99152; 99153; A6257; C1874; C1887; C9600; C9601; J1644; J2001; J2250; J3010; J7030; Q0163; Q9967; A4620; C1725; C1769; G0378; J3490

== ENCOUNTER 2018-03-08 10:01 | Emergency (ER) | payer MEDICARE, BC ==
[~2018-03-08] VITALS: Ht 160 cm; Wt 75.6 kg
[~2018-03-08 10:01] MED LIST changes: -ASPI-1071 PO; +ATOR40TA PO; +CLOP75TA35 PO; -COL100C PO; -FURO20TA4 PO; +GABA-530 PO; -GABA100C PO; +LIRA0.6P2 SUBCUT; -LISI-600 PO; +LISI10TA4 PO; +METO25TA6 PO; +NITR0.4T51 SL; +OXYC-593 PO; -PER5325T PO
[2018-03-08 10:43] LABS: BASOPHILS % (AUTO) 0.6 % (0-1); EOSINOPHILS # (AUTO) 0.4 X10'3 (0-0.9); EOSINOPHILS % (AUTO) 5.2 % (0-6); HEMATOCRIT 36.6 % (35.0-45.0); HEMOGLOBIN 12.3 g/dl (12.0-16.0); LYMPHOCYTES % (AUTO) 12.1 % (21-51); MEAN CORPUSCULAR HEMOGLOBIN 30.8 PG (27.0-31.0); MEAN CORPUSCULAR HGB CONC 33.7 g/dL (33.0-36.5); MEAN CORPUSCULAR VOLUME 91.3 FL (78-98); MEAN PLATELET VOLUME 8.5 FL (7.4-10.4); MONOCYTES # (AUTO) 0.8 X10'3 (0-0.9); MONOCYTES % (AUTO) 10.4 % (2-12); NEUTROPHILS # (AUTO) 5.7 X10'3 (1.8-7.7); NEUTROPHILS % (AUTO) 71.7 % (42-75); PLATELET COUNT 209 X10'3 (140-440); RED BLOOD COUNT 4.01 X10'6 (4.20-5.60); WHITE BLOOD COUNT 7.9 X10'3 (4.5-11.0)
[2018-03-08 11:07] LABS: INR 1.1 INR; PARTIAL THROMBOPLASTIN TIME 28 SECONDS (22-32); PROTHROMBIN TIME 10.9 SECONDS (9.0-12.0)
[2018-03-08 11:13] LABS: ALANINE AMINOTRANSFERASE 37 U/L (12-78); ALBUMIN 3.2 G/DL (3.4-5.0); ALBUMIN/GLOBULIN RATIO 0.6 (1.1-1.5); ALKALINE PHOSPHATASE 373 IU/L (46-116); ANION GAP 10 (8-16); ASPARTATE AMINO TRANSFERASE 36 U/L (10-37); BILIRUBIN,TOTAL 0.9 MG/DL (0.1-1.0); BLOOD UREA NITROGEN 52 MG/DL (7-18); BUN/CREATININE RATIO 26.9 (6.6-38.0); CALCIUM 9.2 MG/DL (8.5-10.1); CHLORIDE 97 MMOL/L (99-107); CREATININE 1.93 MG/DL (0.40-0.90); GLUCOSE 250 MG/DL (70-104); POTASSIUM 4.7 MMOL/L (3.5-5.1); SODIUM 134 MMOL/L (135-145); TOTAL CARBON DIOXIDE 26.8 MMOL/L (24-32); TOTAL PROTEIN 8.7 G/DL (6.4-8.2); eGFR 25 ML/MIN
[2018-03-08 12:03] LABS: MAGNESIUM 2.1 MG/DL (1.5-2.4)
--- NOTE | 2018-03-08 12:13 | NUR ---
assumed care of pt from Keith CHANDLER
--- NOTE | 2018-03-08 12:30 | NUR ---
pt is resting quietly on gurney, resp even and unlabored, skin p/w/d, waiting for lab results, pt denies chest pain at this time, "I just feel tired"
[2018-03-08] MEDS ORDERED: LIDOcaine 5% patch TP ONE (12:35)
[2018-03-08] MEDS ORDERED: acetaminophen 325mg tablet PO ONE (12:35)
--- NOTE | 2018-03-08 13:12 | NUR ---
lidocain patch applied to lower back, pt is waiting for TSH level.
[2018-03-08 14:21] VITALS: BP 147/76
== END 2018-03-08 17:00 | disposition home or self-care (01) ==
LOC: ER 10:02
DX: R07.89 Other chest pain (principal); R53.83 Other fatigue; M54.5 Low back pain; E11.42 Type 2 diabetes mellitus with diabetic polyneuropathy; I10 Essential (primary) hypertension; Z90.49 Acquired absence of other specified parts of digestive tract; Z88.2 Allergy status to sulfonamides; Z88.8 Allergy status to other drugs, medicaments and biological substances; Z79.01 Long term (current) use of anticoagulants; Z79.4 Long term (current) use of insulin; Z79.899 Other long term (current) drug therapy
CPT/HCPCS: 36415; 71045; 80053; 83735; 83880; 84443; 84484; 85025; 85610; 85730; 93005; 99284

== ENCOUNTER 2018-11-03 14:25 | Inpatient (IN) | payer MEDICARE, BC ==
[~2018-11-03] VITALS: Ht 160 cm; Wt 75.5 kg
[~2018-11-03 14:25] MED LIST changes: +AMIO200T61 PO; +APIX5TAB3 PO; +ASPI-1265 PO; +BENZ-49 PO; +CLOP75TA33 PO; -CLOP75TA35 PO; +COR3.125T PO; +FER325T PO; +FURO40TA4 PO; -GABA-530 PO; -LEVO25TA7 PO; -LISI10TA4 PO; -METO25TA6 PO; -NITR0.4T51 SL; -OXYC-593 PO; +SPIR25TA PO
[2018-11-03] MEDS ORDERED: piperacillin/tazo 3.375gm/50ml 50 ML IV ONE (15:05)
[2018-11-03] MEDS ORDERED: morphine 4 MG/ML inj SYRINge IV PRN (15:05)
[2018-11-03] MEDS ORDERED: ondansetron/PF 4mg/2ml inj IV ONE (15:05)
[2018-11-03 15:44] LABS: BASOPHILS # (AUTO) 0.1 X10'3 (0-0.2); BASOPHILS % (AUTO) 1.4 % (0-1); EOSINOPHILS # (AUTO) 0.5 X10'3 (0-0.9); EOSINOPHILS % (AUTO) 6.5 % (0-6); HEMATOCRIT 27.1 % (35.0-45.0); HEMOGLOBIN 8.9 g/dl (12.0-16.0); LYMPHOCYTES # (AUTO) 0.8 X10'3 (1.1-4.8); LYMPHOCYTES % (AUTO) 9.2 % (21-51); MEAN CORPUSCULAR VOLUME 91.1 FL (78-98); MEAN PLATELET VOLUME 8.8 FL (7.4-10.4); MONOCYTES # (AUTO) 0.8 X10'3 (0-0.9); MONOCYTES % (AUTO) 10.3 % (2-12); NEUTROPHILS # (AUTO) 5.9 X10'3 (1.8-7.7); NEUTROPHILS % (AUTO) 72.6 % (42-75); PLATELET COUNT 177 X10'3 (140-440); RED BLOOD COUNT 2.97 X10'6 (4.20-5.60); RED CELL DISTRIBUTION WIDTH 18.7 % (11.5-14.5); WHITE BLOOD COUNT 8.2 X10'3 (4.5-11.0)
[2018-11-03] MEDS ORDERED: LIDOcaine 1% W/epiNEPHrine 1:200,000 10ml vial IJ ONE (16:00)
[2018-11-03 16:02] LABS: ALANINE AMINOTRANSFERASE 22 U/L (12-78); ALBUMIN 2.7 G/DL (3.4-5.0); ALBUMIN/GLOBULIN RATIO 0.5 (1.1-1.5); ALKALINE PHOSPHATASE 158 IU/L (46-116); ANION GAP 11 (8-16); ASPARTATE AMINO TRANSFERASE 29 U/L (10-37); BLOOD UREA NITROGEN 49 MG/DL (7-18); BUN/CREATININE RATIO 23.7 (6.6-38.0); C-REACTIVE PROTEIN 7.59 MG/DL (0.0-0.5); CALCIUM 8.4 MG/DL (8.5-10.1); CHLORIDE 105 MMOL/L (99-107); CREATININE 2.07 MG/DL (0.40-0.90); GLUCOSE 328 MG/DL (70-104); POTASSIUM 4.8 MMOL/L (3.5-5.1); SODIUM 138 MMOL/L (135-145); TOTAL CARBON DIOXIDE 22.1 MMOL/L (24-32); TOTAL PROTEIN 7.8 G/DL (6.4-8.2); eGFR 23 ML/MIN
[2018-11-03 16:09] LABS: PLATELET ESTIMATE NORMAL; POLYCHROMASIA 1+
[2018-11-03 16:10] LABS: ANISOCYTOSIS 2+; ELLIPTOCYTES FEW
[2018-11-03 16:31] LABS: D-DIMER 1.25 MG/L FEU (0-0.50)
--- NOTE | 2018-11-03 16:33 | NUR ---
family at bedside.
[2018-11-03 16:50] LABS: CLARITY,URINE CLEAR (Clear); COLOR,URINE YELLOW (Yellow); GLUCOSE, URINE NEGATIVE (Neg); KETONES,URINE NEGATIVE (Neg); LEUKOCYTE ESTERASE ,URINE NEGATIVE (Neg); NITRITES, URINE NEGATIVE (Neg); OCCULT BLOOD,URINE NEGATIVE (Neg); PH,URINE 5.5 (4.8-8.0); PROTEIN,URINE NEGATIVE (Neg)
[2018-11-03 16:56] LABS: UA COLLECTION TYPE STRAIGHT CATH
[2018-11-03] MEDS ORDERED: HYDROcodone/acetaminophen 10/325mg tab PO ONE (17:25)
[2018-11-03] MEDS ORDERED: morphine 4 MG/ML inj SYRINge IV ONE (17:25)
[2018-11-03 17:38] LABS: APPEARANCE,SYNOVIAL FLUID CLOUDY; COLOR,SYNOVIAL FLUID YELLOW; SYN RBC 2900 /CU MM (0); SYN WBC 2575 /CU MM (0-200); SYNOVIAL FLUID CRYSTALS QT NO CRYSTALS SEEN
[2018-11-03] MEDS ORDERED: AMIO200T61 PO (19:20)
[2018-11-03] MEDS ORDERED: CARV-50 PO (19:20)
[2018-11-03] MEDS ORDERED: APIX5TAB3 PO (19:20)
[2018-11-03] MEDS ORDERED: ASPI-1053 PO (19:20)
[2018-11-03] MEDS ORDERED: FURO-149 PO (19:20)
[2018-11-03] MEDS ORDERED: SPIR25TA5 PO (19:20)
[2018-11-03] MEDS ORDERED: INSU100V12 SQ (19:20)
[2018-11-03] MEDS ORDERED: BENZ-49 PO (19:20)
[2018-11-03] MEDS ORDERED: CLOP75TA35 PO (19:20)
[2018-11-03] MEDS ORDERED: FERR325T28 PO (19:20)
[2018-11-03] MEDS ORDERED: ATOR40TA7 PO (19:20)
[2018-11-03] MEDS ORDERED: LIRA0.6P2 SQ (19:20)
[2018-11-03] MEDS ORDERED: morphine 2 MG/ML inj. syringe IV PRN ×2 (19:50)
[2018-11-03] MEDS ORDERED: mag hydrox/Alum hydrox/simeth 30ml oral suspension PO PRN (19:50)
[2018-11-03] MEDS ORDERED: acetaminophen 325mg tablet PO PRN (19:50)
[2018-11-03] MEDS ORDERED: magnesium hydroxide 30ml (MOM) UD suspension PO PRN (19:50)
[2018-11-03] MEDS ORDERED: glucagon, human recombinant 1mg kit SUBCUT PRN (19:55)
[2018-11-03] MEDS ORDERED: dextrose 50%-water 50ml dispensing syringe IV PRN ×2 (19:55)
[2018-11-03] MEDS ORDERED: dextrose ORAL solution 15 GM/59 ML bottle PO PRN ×2 (19:55)
[2018-11-03] MEDS ORDERED: MESSAGE TO PHARMACY PO ONE (19:55)
[2018-11-03] MEDS ORDERED: carVEDilol 12.5mg tablet PO SCH (20:00)
[2018-11-03] MEDS ORDERED: methylPREDNISolone sod succ/PF 40mg inj. IV ONE (20:00)
[2018-11-03] MEDS: apixaban 5mg tablet PO SCH (20:29)
[2018-11-03] MEDS: ferrous sulfate 325mg tablet PO SCH (20:29)
[2018-11-03] MEDS: carVEDilol 3.125mg tablet PO SCH (20:29)
[2018-11-03] MEDS: vancomycin/NS 1 GM ADD-VANTAGE 250 ML IV SCH (20:29)
[2018-11-03 20:33] LABS: CREATINE KINASE 46 U/L (26-192)
[2018-11-03] MEDS ORDERED: insulin glargine (Lantus) pen - multi-dose SQ SCH (21:00)
--- NOTE | 2018-11-03 21:36 | NUR ---
Order for 60 units Lantus at HS. Pt blood sugar 268. GFR 23. aware. 60 Units Lantus administered
[2018-11-03 21:45] VITALS: BP 99/60
--- NOTE | 2018-11-03 21:45 | NUR ---
Report received from GERALDINE Stern in the ER. Patient arrived on floor and was transferred to bed via gurney. Belongings are also at bedside. VS stable.
[2018-11-03] MEDS: temazepam 15mg capsule PO PRN (23:14)
[2018-11-04] MEDS: benzonatate 100mg capsule PO SCH ×4 (01:12→23:23)
[2018-11-04 02:00] LABS: ALANINE AMINOTRANSFERASE 20 U/L (12-78); ALBUMIN 2.6 G/DL (3.4-5.0); ALBUMIN/GLOBULIN RATIO 0.5 (1.1-1.5); ALKALINE PHOSPHATASE 159 IU/L (46-116); ANION GAP 10 (8-16); ASPARTATE AMINO TRANSFERASE 29 U/L (10-37); BILIRUBIN,TOTAL 1.1 MG/DL (0.1-1.0); BLOOD UREA NITROGEN 46 MG/DL (7-18); BUN/CREATININE RATIO 22.7 (6.6-38.0); CHLORIDE 105 MMOL/L (99-107); CHOL/HDL RATIO 2.7 (0.00-4.99); CHOLESTEROL 60 MG/DL (0-200); CREATININE 2.03 MG/DL (0.40-0.90); GLUCOSE 286 MG/DL (70-104); HDL CHOLESTEROL 22 MG/DL (35-60); LDL CHOLESTEROL 31 MG/DL (50-100); POTASSIUM 5.2 MMOL/L (3.5-5.1); SODIUM 138 MMOL/L (135-145); TOTAL CARBON DIOXIDE 23.1 MMOL/L (24-32); TOTAL PROTEIN 7.6 G/DL (6.4-8.2); TRIGLYCERIDES 67 MG/DL (20-135); eGFR 24 ML/MIN
[2018-11-04 02:07] LABS: BASOPHILS % (AUTO) 0.5 % (0-1); EOSINOPHILS % (AUTO) 0.4 % (0-6); HEMATOCRIT 26.5 % (35.0-45.0); HEMOGLOBIN 8.7 g/dl (12.0-16.0); LYMPHOCYTES # (AUTO) 0.3 X10'3 (1.1-4.8); LYMPHOCYTES % (AUTO) 4.4 % (21-51); MEAN CORPUSCULAR HEMOGLOBIN 30.4 PG (27.0-31.0); MEAN CORPUSCULAR HGB CONC 32.9 g/dL (33.0-36.5); MEAN CORPUSCULAR VOLUME 92.3 FL (78-98); MEAN PLATELET VOLUME 8.8 FL (7.4-10.4); MONOCYTES # (AUTO) 0.2 X10'3 (0-0.9); MONOCYTES % (AUTO) 1.9 % (2-12); NEUTROPHILS # (AUTO) 7.4 X10'3 (1.8-7.7); NEUTROPHILS % (AUTO) 92.8 % (42-75); PLATELET COUNT 151 X10'3 (140-440); RED BLOOD COUNT 2.87 X10'6 (4.20-5.60); RED CELL DISTRIBUTION WIDTH 18.8 % (11.5-14.5)
[2018-11-04 03:00] VITALS: BP 107/71
[2018-11-04] MEDS ORDERED: benzocaine/menthol oral lozeng 1 EACH BOX MM PRN ×2 (05:45→12:45)
[2018-11-04 06:00] VITALS: BP 144/54
--- NOTE | 2018-11-04 06:31 | NUR ---
Problems reprioritized. Patient report given, questions answered & plan of care reviewed with GERALDINE Madison.
--- NOTE | 2018-11-04 06:49 | NUR ---
Patient in room PCU 3024. I have received report from GERALDINE Bhardwaj and had the opportunity to ask questions and assume patient care.
[2018-11-04] MEDS ORDERED: non-formulary drug (Atorvastatin Calcium (Lipitor) 1 TABLET) PO SCH (08:00)
[2018-11-04] MEDS: insulin Lispro (HumaLOG) vial - multi-dose SQ SCH ×3 (08:37→20:01)
[2018-11-04] MEDS: spironolactone 25 MG tablet PO SCH (08:39)
[2018-11-04] MEDS: furosemide 40mg tablet PO SCH (08:39)
[2018-11-04] MEDS: CefTRIAXone 2gm/D5W 50ml 50 ML IV SCH (08:39)
[2018-11-04] MEDS: apixaban 5mg tablet PO SCH ×2 (08:40→21:54)
[2018-11-04] MEDS: atorvastatin 20mg tablet PO SCH (08:40)
[2018-11-04] MEDS: aspirin 81mg tab.chew PO SCH (08:40)
[2018-11-04] MEDS: ferrous sulfate 325mg tablet PO SCH ×2 (08:40→21:54)
[2018-11-04] MEDS: amiodarone 200mg tablet PO SCH (08:40)
[2018-11-04] MEDS: carVEDilol 3.125mg tablet PO SCH ×2 (08:40→21:51)
[2018-11-04] MEDS: clopidogrel 75mg tablet PO SCH (08:40)
[2018-11-04 11:00] VITALS: BP 122/55
--- NOTE | 2018-11-04 11:01 | NUR ---
Sent to Dr De Guzman PAGER ID: [phone] MESSAGE: RE: Alecia Zamudio [id number]. Pt requesting throat lozenge. -Gricelda [id number]
--- NOTE | 2018-11-04 12:39 | NUR ---
Sent to Dr De Guzman PAGER ID: [phone] MESSAGE: RE: Alecia Zamudio. Pt has an order to hold fluids for 48 hours, but she has been noncompliant. She is also persistent about throat lozenge. Please advise. -Gricelda 1940
--- NOTE | 2018-11-04 12:39 | NUR ---
Pt's artherocentesis site has been oozing blood. Bandaid removed; redressed with xeroform, to prevent sticking, and a pressure dressing.
[2018-11-04] MEDS ORDERED: sodium polystyrene sulfonate 15gm/60ml oral suspension PO ONE (12:50)
[2018-11-04 15:00] VITALS: BP 111/34
[2018-11-04] MEDS: ondansetron/PF 4mg/2ml inj IV PRN (17:43)
[2018-11-04 18:00] VITALS: BP_SYST 111; BP_SYST 85; BP_DIAS 34; BP_DIAS 46
--- NOTE | 2018-11-04 18:01 | NUR ---
Pt started to feel nauseous and "gross." Upon feeling the pt's forehead, diaphoresis was noted. No new events recorded on the tele monitor. VS were: T 98.9, RR 31, SpO2 97%, HR 73, BP 112/44 with a MAP of 65. She was given an emesis bag, and laid down to rest.
--- NOTE | 2018-11-04 18:41 | NUR ---
PAGER ID: [phone] MESSAGE: pt Carey Alston, started to feel nauseous and "gross, diaphoresis . vital wnl, but started to be hypotensive 98/ 46. Chelsea [phone].
--- NOTE | 2018-11-04 18:42 | NUR ---
dr. De Guzman ordered a stat k and mg he was thinking the K aceslyte made the pt sick, 250 bolus was giving
--- NOTE | 2018-11-04 18:43 | NUR ---
Pt BP slightly decreased, Dr aware. Dr De Guzman does not recommend EKG. STAT K and Mg ordered. Per Dr De Guzman, nausea may be from prior Kayexalate.
--- NOTE | 2018-11-04 18:46 | NUR ---
Patient in room PCU 3024. I have received report from Gricelda CHANDLER and had the opportunity to ask questions and assume patient care.
--- NOTE | 2018-11-04 18:48 | NUR ---
Problems reprioritized. Patient report given, questions answered & plan of care reviewed with GERALDINE Tran.
[2018-11-04 20:03] LABS: MAGNESIUM 1.8 MG/DL (1.5-2.4); POTASSIUM 4.7 MMOL/L (3.5-5.1)
[2018-11-04] MEDS: lactobacillus rhamnosus 10,000 MMU CELLS/CAPSULE PO SCH (21:51)
[2018-11-04] MEDS: vancomycin/NS 1 GM ADD-VANTAGE 250 ML IV SCH (21:59)
--- NOTE | 2018-11-04 22:53 | NUR ---
PAGER ID: [phone] MESSAGE: pt Alecia Zamudio has order of 60 units of lantus schedule, can we put her on our lantus protocol and D/c the 60 units, thanks Chelsea [phone]
[2018-11-04 23:00] VITALS: BP_SYST 111; BP_SYST 112; BP_DIAS 34; BP_DIAS 52
--- NOTE | 2018-11-04 23:04 | NUR ---
pt hav 50 units juani order, she said she does not take 40-40 units depends on her blood sugar and she wants to switch to hospital protocol for patriciatus Addendum: 11/04/18 at 2305 by Chelsea Adams RN 60*
[2018-11-04] MEDS: insulin glargine (Lantus) pen - multi-dose SQ SCH (23:23)
[2018-11-05] VITALS (7 sets, daily range): BP systolic 91–123; BP diastolic 34–70
--- NOTE | 2018-11-05 03:41 | NUR ---
paged Dr Castellon about pt BP 85/50, he gaev an order to give 500 ml bolus
[2018-11-05 05:18] LABS: BASOPHILS # (AUTO) 0.1 X10'3 (0-0.2); BASOPHILS % (AUTO) 0.5 % (0-1); EOSINOPHILS # (AUTO) 0.8 X10'3 (0-0.9); EOSINOPHILS % (AUTO) 4.4 % (0-6); HEMOGLOBIN 8.1 g/dl (12.0-16.0); LYMPHOCYTES # (AUTO) 0.4 X10'3 (1.1-4.8); LYMPHOCYTES % (AUTO) 2.1 % (21-51); MEAN CORPUSCULAR HEMOGLOBIN 29.3 PG (27.0-31.0); MEAN CORPUSCULAR HGB CONC 32.3 g/dL (33.0-36.5); MEAN CORPUSCULAR VOLUME 90.8 FL (78-98); MEAN PLATELET VOLUME 8.8 FL (7.4-10.4); MONOCYTES # (AUTO) 0.6 X10'3 (0-0.9); MONOCYTES % (AUTO) 3.6 % (2-12); NEUTROPHILS # (AUTO) 15.6 X10'3 (1.8-7.7); NEUTROPHILS % (AUTO) 89.4 % (42-75); PLATELET COUNT 157 X10'3 (140-440); RED BLOOD COUNT 2.75 X10'6 (4.20-5.60); RED CELL DISTRIBUTION WIDTH 18.9 % (11.5-14.5); WHITE BLOOD COUNT 17.4 X10'3 (4.5-11.0)
--- NOTE | 2018-11-05 06:18 | NUR ---
Problems reprioritized. Patient report given, questions answered & plan of care reviewed with Gricelda RN.
--- NOTE | 2018-11-05 06:30 | NUR ---
Patient in room PCU 3024. I have received report from GERALDINE Tran and had the opportunity to ask questions and assume patient care. Pt sleeping. In no apparent distress. Will continue to monitor.
[2018-11-05 07:18] LABS: ANISOCYTOSIS 2+; PLATELET ESTIMATE NORMAL
[2018-11-05] MEDS: atorvastatin 20mg tablet PO SCH (07:18)
[2018-11-05] MEDS: amiodarone 200mg tablet PO SCH (07:20)
[2018-11-05] MEDS: benzonatate 100mg capsule PO SCH ×2 (07:20→17:19)
[2018-11-05] MEDS: ferrous sulfate 325mg tablet PO SCH ×2 (07:20→20:55)
[2018-11-05] MEDS: spironolactone 25 MG tablet PO SCH (07:20)
[2018-11-05] MEDS: furosemide 40mg tablet PO SCH (07:20)
[2018-11-05] MEDS: lactobacillus rhamnosus 10,000 MMU CELLS/CAPSULE PO SCH ×2 (07:20→20:55)
[2018-11-05] MEDS: CefTRIAXone 2gm/D5W 50ml 50 ML IV SCH (07:20)
[2018-11-05] MEDS: aspirin 81mg tab.chew PO SCH (07:33)
[2018-11-05] MEDS: carVEDilol 3.125mg tablet PO SCH ×2 (07:35→20:55)
[2018-11-05 07:36] LABS: ALANINE AMINOTRANSFERASE 19 U/L (12-78); ALBUMIN 2.2 G/DL (3.4-5.0); ALBUMIN/GLOBULIN RATIO 0.4 (1.1-1.5); ALKALINE PHOSPHATASE 166 IU/L (46-116); ANION GAP 13 (8-16); ASPARTATE AMINO TRANSFERASE 29 U/L (10-37); BILIRUBIN,TOTAL 0.9 MG/DL (0.1-1.0); BLOOD UREA NITROGEN 59 MG/DL (7-18); BUN/CREATININE RATIO 21.7 (6.6-38.0); CALCIUM 8.1 MG/DL (8.5-10.1); CHLORIDE 103 MMOL/L (99-107); CREATININE 2.72 MG/DL (0.40-0.90); GLUCOSE 212 MG/DL (70-104); POTASSIUM 5.3 MMOL/L (3.5-5.1); SODIUM 136 MMOL/L (135-145); TOTAL CARBON DIOXIDE 19.6 MMOL/L (24-32); TOTAL PROTEIN 7.1 G/DL (6.4-8.2); eGFR 17 ML/MIN
[2018-11-05] MEDS: apixaban 5mg tablet PO SCH ×2 (07:37→20:54)
[2018-11-05] MEDS: clopidogrel 75mg tablet PO SCH (07:37)
[2018-11-05] MEDS ORDERED: sodium polystyrene sulfonate 15gm/60ml oral suspension PO ONE (08:35)
--- NOTE | 2018-11-05 13:07 | NUR ---
Sent to Dr De Guzman PAGER ID: [phone] MESSAGE: RE: Alecia Zamudio [id number]. Dr. Champion stopped by and suggested a PBNP and possibly change from PO to IV Lasix (very little change in GFR from last visit). -Gricelda [phone]
--- NOTE | 2018-11-05 18:32 | NUR ---
Problems reprioritized. Patient report given, questions answered & plan of care reviewed with GERALDINE Tran.
[2018-11-05] MEDS: insulin Lispro (HumaLOG) vial - multi-dose SQ SCH (18:39)
--- NOTE | 2018-11-05 18:44 | NUR ---
pt supposed to be lv 6 for insulin but she has not been treating all day and not eating anyhting for dinner, so pt was treated at lv4 instead and received 11 units, Gricelda the day shift nurse is agree with the decision
--- NOTE | 2018-11-05 18:44 | NUR ---
Patient in room PCU 3024. I have received report from Gricelda CHANDLER and had the opportunity to ask questions and assume patient care.
[2018-11-05] MEDS: vancomycin/NS 1 GM ADD-VANTAGE 250 ML IV SCH (20:56)
[2018-11-05] MEDS: insulin glargine (Lantus) pen - multi-dose SQ SCH (21:12)
[2018-11-05] MEDS: ondansetron/PF 4mg/2ml inj IV PRN (22:09)
--- NOTE | 2018-11-05 23:42 | NUR ---
contacted dr. Castellon about pt became so weak and nauseated after receiving her 2000 medication, said keep monitoring pt
--- NOTE | 2018-11-05 23:58 | NUR ---
pt said feeling nauseated and she had two bowl movements earlier, will continue to monitor, pt received zofran @2200
[2018-11-06] VITALS (13 sets, daily range): BP systolic 95–151; BP diastolic 38–87
[2018-11-06] MEDS: benzonatate 100mg capsule PO SCH ×3 (00:36→15:35)
--- NOTE | 2018-11-06 01:00 | NUR ---
pt had one episode of incontinent urine
--- NOTE | 2018-11-06 03:08 | NUR ---
PAGER ID: [phone] MESSAGE: pt Alecia Zamudio, [id number] c/p of itchiness over the neck and chest area, can she have something to help with that, thanks Chelsea [phone]!
[2018-11-06] MEDS: diphenhydrAMINE 25mg capsule PO PRN ×2 (03:26→20:40)
[2018-11-06 05:36] LABS: BASOPHILS % (AUTO) 0.5 % (0-1); EOSINOPHILS # (AUTO) 1.3 X10'3 (0-0.9); EOSINOPHILS % (AUTO) 12.5 % (0-6); HEMATOCRIT 24.2 % (35.0-45.0); HEMOGLOBIN 8.1 g/dl (12.0-16.0); LYMPHOCYTES # (AUTO) 0.3 X10'3 (1.1-4.8); LYMPHOCYTES % (AUTO) 3.2 % (21-51); MEAN CORPUSCULAR HEMOGLOBIN 30.4 PG (27.0-31.0); MEAN CORPUSCULAR HGB CONC 33.7 g/dL (33.0-36.5); MEAN CORPUSCULAR VOLUME 90.2 FL (78-98); MEAN PLATELET VOLUME 9.1 FL (7.4-10.4); MONOCYTES # (AUTO) 0.5 X10'3 (0-0.9); MONOCYTES % (AUTO) 4.6 % (2-12); NEUTROPHILS # (AUTO) 8.2 X10'3 (1.8-7.7); NEUTROPHILS % (AUTO) 79.2 % (42-75); PLATELET COUNT 149 X10'3 (140-440); RED BLOOD COUNT 2.68 X10'6 (4.20-5.60); RED CELL DISTRIBUTION WIDTH 18.5 % (11.5-14.5); WHITE BLOOD COUNT 10.4 X10'3 (4.5-11.0)
[2018-11-06 05:48] LABS: ALANINE AMINOTRANSFERASE 18 U/L (12-78); ALBUMIN 2.2 G/DL (3.4-5.0); ALBUMIN/GLOBULIN RATIO 0.4 (1.1-1.5); ALKALINE PHOSPHATASE 140 IU/L (46-116); ANION GAP 14 (8-16); ASPARTATE AMINO TRANSFERASE 27 U/L (10-37); BILIRUBIN,TOTAL 0.8 MG/DL (0.1-1.0); BLOOD UREA NITROGEN 64 MG/DL (7-18); BUN/CREATININE RATIO 20.6 (6.6-38.0); CALCIUM 7.6 MG/DL (8.5-10.1); CHLORIDE 102 MMOL/L (99-107); GLUCOSE 192 MG/DL (70-104); POTASSIUM 3.9 MMOL/L (3.5-5.1); SODIUM 136 MMOL/L (135-145); TOTAL CARBON DIOXIDE 20.5 MMOL/L (24-32); TOTAL PROTEIN 7.1 G/DL (6.4-8.2); eGFR 15 ML/MIN
--- NOTE | 2018-11-06 06:19 | NUR ---
Problems reprioritized. Patient report given, questions answered & plan of care reviewed with Gricelda RN.
--- NOTE | 2018-11-06 06:39 | NUR ---
Patient in room PCU 3024. I have received report from GERALDINE Tran and had the opportunity to ask questions and assume patient care. Pt sleeping, stable. Will continue to monitor.
[2018-11-06] MEDS: ferrous sulfate 325mg tablet PO SCH ×2 (07:36→20:00)
[2018-11-06] MEDS: atorvastatin 20mg tablet PO SCH (07:36)
[2018-11-06] MEDS: clopidogrel 75mg tablet PO SCH (07:36)
[2018-11-06] MEDS: CefTRIAXone 2gm/D5W 50ml 50 ML IV SCH (07:36)
[2018-11-06] MEDS: carVEDilol 3.125mg tablet PO SCH ×2 (07:36→20:41)
[2018-11-06] MEDS: aspirin 81mg tab.chew PO SCH (07:36)
[2018-11-06] MEDS: furosemide 40mg tablet PO SCH (07:36)
[2018-11-06] MEDS: lactobacillus rhamnosus 10,000 MMU CELLS/CAPSULE PO SCH ×2 (07:37→20:41)
[2018-11-06] MEDS: amiodarone 200mg tablet PO SCH (07:37)
[2018-11-06] MEDS: apixaban 5mg tablet PO SCH ×2 (07:37→20:41)
[2018-11-06] MEDS: insulin Lispro (HumaLOG) vial - multi-dose SQ SCH ×3 (09:10→19:07)
[2018-11-06] MEDS: ondansetron/PF 4mg/2ml inj IV PRN ×2 (09:14→15:25)
[2018-11-06] MEDS ORDERED: normal saline 1000ml 1,000 ML IV SCH (11:40)
--- NOTE | 2018-11-06 13:50 | NUR ---
Sent to Dr De Guzman PAGER ID: [phone] MESSAGE: RE: Alecia Zamudio [id number]. Pt states the Zofran isn't doing much for her nausea. She says she's allergic to Compazine. -Gricelda [phone]
--- NOTE | 2018-11-06 15:22 | NUR ---
Sent to Dr De Guzman PAGER ID: [phone] MESSAGE: RE: Alecia Zamudio [id number]. Doesn't want morphine due to nausea. Prefers Tylenol, but the order is only for a temperature above 101, no order for pain. -Gricelda [phone]
[2018-11-06] MEDS ORDERED: acetaminophen 325mg tablet PO PRN (15:55)
[2018-11-06] MEDS ORDERED: DOBUTamine-DoBUTrex 500mg/D5W 250 ML IV SCH (18:20)
[2018-11-06] MEDS ORDERED: furosemide 10 MG/1 ML 10ml inj IV ONE (18:20)
--- NOTE | 2018-11-06 18:40 | NUR ---
Pt experiencing SOB and decreased BP 92/38. SpO2 96% on RA. Blood sugar 218. Increased swelling in her abdomen. Dr Champion consulted on the pt. New orders have been placed per Dr De Guzman. Pt to receive: STAT CXR; dobutamine at 5mcg/kg/hr; 60mg IV Lasix once, after BP increases to WNL, then 40mg IV Lasix BiD. shift engineer RN aware. Problems reprioritized. Patient report given, questions answered & plan of care reviewed with GERALDINE Valdez.
--- NOTE | 2018-11-06 18:49 | NUR ---
Patient in room PCU 3024. I have received report from Gricelda CHANDLER and had the opportunity to ask questions and assume patient care.
--- NOTE | 2018-11-06 19:00 | NUR ---
Patient complaining of 7/10 chest pain described as pressure in the sternal area. STAT EKG ordered and taken to Dr. Ewing to read. No signs of ST elevated and by the time patient was re-evaluated after EKG was read she said the chest pain had subsided. She was also started on a Dobutamine drip per Dr. Champion and IV Lasix was ordered to give as soon as her blood pressure has become adequate.
[2018-11-06] MEDS: furosemide 40mg/4ml inj IV SCH (20:00)
[2018-11-06] MEDS ORDERED: VANCOMYCIN LEVEL IV ONE (20:30)
[2018-11-06 20:31] LABS: VANCOMYCIN,TROUGH 20.5 UG/ML (6.0-14.0)
[2018-11-06] MEDS: insulin glargine (Lantus) pen - multi-dose SQ SCH (21:55)
[2018-11-06] MEDS: temazepam 15mg capsule PO PRN (21:55)
--- NOTE | 2018-11-06 22:50 | NUR ---
Pharmacy notified of critical Vanco trough of 20.5 and Vanco has already been discontinued.
[2018-11-07] VITALS (14 sets, daily range): BP systolic 52–125; BP diastolic 23–60
[2018-11-07 06:08] LABS: ALANINE AMINOTRANSFERASE 18 U/L (12-78); ALBUMIN 2.1 G/DL (3.4-5.0); ALBUMIN/GLOBULIN RATIO 0.5 (1.1-1.5); ALKALINE PHOSPHATASE 142 IU/L (46-116); ANION GAP 12 (8-16); ASPARTATE AMINO TRANSFERASE 20 U/L (10-37); BILIRUBIN,TOTAL 0.8 MG/DL (0.1-1.0); BLOOD UREA NITROGEN 72 MG/DL (7-18); BUN/CREATININE RATIO 21.2 (6.6-38.0); CALCIUM 7.9 MG/DL (8.5-10.1); CHLORIDE 104 MMOL/L (99-107); CREATININE 3.39 MG/DL (0.40-0.90); GLUCOSE 212 MG/DL (70-104); POTASSIUM 3.7 MMOL/L (3.5-5.1); SODIUM 137 MMOL/L (135-145); TOTAL CARBON DIOXIDE 20.9 MMOL/L (24-32); TOTAL PROTEIN 6.7 G/DL (6.4-8.2); eGFR 13 ML/MIN
[2018-11-07 06:11] LABS: BASOPHILS # (AUTO) 0.1 X10'3 (0-0.2); BASOPHILS % (AUTO) 0.5 % (0-1); EOSINOPHILS # (AUTO) 1.5 X10'3 (0-0.9); EOSINOPHILS % (AUTO) 11.5 % (0-6); HEMOGLOBIN 8.4 g/dl (12.0-16.0); LYMPHOCYTES # (AUTO) 0.2 X10'3 (1.1-4.8); LYMPHOCYTES % (AUTO) 1.6 % (21-51); MEAN CORPUSCULAR HEMOGLOBIN 30.3 PG (27.0-31.0); MEAN CORPUSCULAR HGB CONC 33.4 g/dL (33.0-36.5); MEAN CORPUSCULAR VOLUME 90.7 FL (78-98); MEAN PLATELET VOLUME 9.1 FL (7.4-10.4); MONOCYTES # (AUTO) 0.5 X10'3 (0-0.9); MONOCYTES % (AUTO) 4.1 % (2-12); NEUTROPHILS # (AUTO) 10.5 X10'3 (1.8-7.7); NEUTROPHILS % (AUTO) 82.3 % (42-75); PLATELET COUNT 163 X10'3 (140-440); RED BLOOD COUNT 2.75 X10'6 (4.20-5.60); RED CELL DISTRIBUTION WIDTH 18.5 % (11.5-14.5); WHITE BLOOD COUNT 12.8 X10'3 (4.5-11.0)
--- NOTE | 2018-11-07 06:33 | NUR ---
Problems reprioritized. Patient report given, questions answered & plan of care reviewed with Darryl CHANDLER.
--- NOTE | 2018-11-07 06:56 | NUR ---
Patient in room PCU 3024. I have received report from GERALDINE Sorto and had the opportunity to ask questions and assume patient care.
[2018-11-07] MEDS: furosemide 40mg/4ml inj IV SCH (08:32)
[2018-11-07] MEDS: clopidogrel 75mg tablet PO SCH (08:32)
[2018-11-07] MEDS: lactobacillus rhamnosus 10,000 MMU CELLS/CAPSULE PO SCH (08:32)
[2018-11-07] MEDS: benzonatate 100mg capsule PO SCH ×2 (08:32)
[2018-11-07] MEDS: atorvastatin 20mg tablet PO SCH (08:32)
[2018-11-07] MEDS: carVEDilol 3.125mg tablet PO SCH (08:33)
[2018-11-07] MEDS: apixaban 5mg tablet PO SCH (08:33)
[2018-11-07] MEDS: ferrous sulfate 325mg tablet PO SCH (08:33)
[2018-11-07] MEDS: aspirin 81mg tab.chew PO SCH (08:33)
[2018-11-07] MEDS: amiodarone 200mg tablet PO SCH (08:33)
--- NOTE | 2018-11-07 09:38 | NUR ---
PAGER ID: [phone] MESSAGE: [id number] Alecia Zamudio: Patient is back in Sinus. GERALDINE Servin (covering for GERALDINE Toney) Ext [phone]
[2018-11-07] MEDS: insulin Lispro (HumaLOG) vial - multi-dose SQ SCH (11:52)
[2018-11-07] MEDS ORDERED: DOBUTamine-DoBUTrex 500mg/D5W 250 ML IV SCH (14:55)
--- NOTE | 2018-11-07 15:30 | NUR ---
New bag of Dobutamin was sent with medics for transport
[2018-11-07] MEDS: ondansetron/PF 4mg/2ml inj IV PRN (15:51)
--- NOTE | 2018-11-07 17:28 | NUR ---
Report given to Joi RN @ [facility]
== END 2018-11-07 16:04 | disposition short-term general hospital (02) | DRG 682 ==
LOC: ER 14:26 → ED HOLD 19:50 → PCU 3S 21:45
PROVIDERS: ADMIT Internal Medicine; ATTEND Family Medicine
PROC: 0S9C3ZZ Drainage of Right Knee Joint, Percutaneous Approach (ICD-10-PCS; principal; 2018-11-03)
DX: N17.9 Acute kidney failure, unspecified (principal); I50.23 Acute on chronic systolic (congestive) heart failure; I13.0 Hypertensive heart and chronic kidney disease with heart failure and stage 1 through stage 4 chronic kidney disease, or unspecified chronic kidney disease; I42.0 Dilated cardiomyopathy; M17.11 Unilateral primary osteoarthritis, right knee; E11.22 Type 2 diabetes mellitus with diabetic chronic kidney disease; E11.42 Type 2 diabetes mellitus with diabetic polyneuropathy; M32.9 Systemic lupus erythematosus, unspecified; I95.9 Hypotension, unspecified; I48.0 Paroxysmal atrial fibrillation; K74.60 Unspecified cirrhosis of liver; E86.1 Hypovolemia; I25.10 Atherosclerotic heart disease of native coronary artery without angina pectoris; M25.461 Effusion, right knee; R21 Rash and other nonspecific skin eruption; B19.20 Unspecified viral hepatitis C without hepatic coma; E78.5 Hyperlipidemia, unspecified; E87.5 Hyperkalemia; E86.0 Dehydration; N18.9 Chronic kidney disease, unspecified; Z79.01 Long term (current) use of anticoagulants; Z79.899 Other long term (current) drug therapy; Z87.442 Personal history of urinary calculi; Z98.61 Coronary angioplasty status; Z88.1 Allergy status to other antibiotic agents; Z88.2 Allergy status to sulfonamides; Z90.710 Acquired absence of both cervix and uterus; Z88.8 Allergy status to other drugs, medicaments and biological substances; Z90.49 Acquired absence of other specified parts of digestive tract
CPT/HCPCS: 20610; 36415; 71045; 73564; 80053; 80061; 80202; 81003; 82550; 82948; 83605; 83735; 83874; 83880; 84132; 84145; 85025; 85379; 85651; 86038; 86140; 87040; 87070; 87081; 89051; 89060; 93005; 94760; 96365; 96375; 96376; 97116; 97161; 97530; 99285; G0378; J0696; J1250; J1815; J1940; J2270; J2405; J2543; J2920; J3370; J7030; Q0163

== ENCOUNTER 2018-11-21 16:46 | Inpatient (IN) | payer MEDICARE, BC ==
[~2018-11-21] VITALS: Ht 160 cm; Wt 79.4 kg
[~2018-11-21 16:46] MED LIST changes: +ASPI-1053 PO; -ASPI-1265 PO; -ATOR40TA PO; +ATOR40TA7 PO; +CARV-50 PO; -CLOP75TA33 PO; +CLOP75TA35 PO; -COR3.125T PO; -FER325T PO; +FERR325T28 PO; +FURO-149 PO; -FURO40TA4 PO; +LIRA0.6P2 SQ; -LIRA0.6P2 SUBCUT; -SPIR25TA PO; +SPIR25TA5 PO
[2018-11-21 23:50] VITALS: BP 94/79
[2018-11-22] VITALS (22 sets, daily range): BP systolic 54–120; BP diastolic 40–92
[2018-11-22] MEDS ORDERED: MIRT7.5T11 PO (00:25)
[2018-11-22] MEDS ORDERED: VANC125C5 PO (00:25)
[2018-11-22] MEDS ORDERED: PHO667C PO (00:25)
[2018-11-22] MEDS ORDERED: FAMO-141 PO (00:25)
[2018-11-22] MEDS ORDERED: TRAM50TA2 PO (00:25)
[2018-11-22] MEDS ORDERED: magnesium hydroxide 30ml (MOM) UD suspension PO PRN (00:35)
[2018-11-22] MEDS ORDERED: MESSAGE TO PHARMACY PO ONE (00:35)
[2018-11-22] MEDS ORDERED: traMADol 50MG tablet PO PRN (00:35)
[2018-11-22] MEDS ORDERED: dextrose ORAL solution 15 GM/59 ML bottle PO PRN ×2 (00:35)
[2018-11-22] MEDS ORDERED: acetaminophen 325mg tablet PO PRN (00:35)
[2018-11-22] MEDS ORDERED: HYDROcodone/acetaminophen 5mg/325mg tablet PO PRN (00:35)
[2018-11-22] MEDS ORDERED: glucagon, human recombinant 1mg kit SUBCUT PRN (00:35)
[2018-11-22] MEDS ORDERED: mag hydrox/Alum hydrox/simeth 30ml oral suspension PO PRN (00:35)
[2018-11-22] MEDS ORDERED: dextrose 50%-water 50ml dispensing syringe IV PRN ×2 (00:35)
[2018-11-22] MEDS: DOBUTamine-DoBUTrex 500mg/D5W 250 ML IV SCH ×2 (02:03→23:34)
[2018-11-22 02:24] LABS: ALBUMIN 2.1 G/DL (3.4-5.0); ANION GAP 8 (8-16); BASOPHILS # (AUTO) 0.1 X10'3 (0-0.2); BASOPHILS % (AUTO) 1.1 % (0-1); BLOOD UREA NITROGEN 106 MG/DL (7-18); BUN/CREATININE RATIO 20.7 (6.6-38.0); CALCIUM 7.9 MG/DL (8.5-10.1); CHLORIDE 95 MMOL/L (99-107); CREATININE 5.11 MG/DL (0.40-0.90); EOSINOPHILS # (AUTO) 0.3 X10'3 (0-0.9); EOSINOPHILS % (AUTO) 3.4 % (0-6); GLUCOSE 214 MG/DL (70-104); HEMATOCRIT 25.3 % (35.0-45.0); HEMOGLOBIN 8.5 g/dl (12.0-16.0); LYMPHOCYTES # (AUTO) 0.2 X10'3 (1.1-4.8); LYMPHOCYTES % (AUTO) 1.9 % (21-51); MEAN CORPUSCULAR HEMOGLOBIN 30.5 PG (27.0-31.0); MEAN CORPUSCULAR HGB CONC 33.7 g/dL (33.0-36.5); MEAN CORPUSCULAR VOLUME 90.5 FL (78-98); MEAN PLATELET VOLUME 8.7 FL (7.4-10.4); MONOCYTES # (AUTO) 0.5 X10'3 (0-0.9); MONOCYTES % (AUTO) 4.6 % (2-12); PLATELET COUNT 177 X10'3 (140-440); POTASSIUM 4.4 MMOL/L (3.5-5.1); RED BLOOD COUNT 2.79 X10'6 (4.20-5.60); RED CELL DISTRIBUTION WIDTH 18.9 % (11.5-14.5); SODIUM 131 MMOL/L (135-145); TOTAL CARBON DIOXIDE 27.8 MMOL/L (24-32); WHITE BLOOD COUNT 10.1 X10'3 (4.5-11.0); eGFR 8 ML/MIN
[2018-11-22 02:47] LABS: ANISOCYTOSIS 2+; ELLIPTOCYTES FEW; HYPOCHROMASIA 1+; PLATELET ESTIMATE NORMAL
--- NOTE | 2018-11-22 06:00 | NUR ---
Patient in room PCU 3010. I have received report from Miryam CHANDLER and had the opportunity to ask questions and assume patient care.
--- NOTE | 2018-11-22 06:07 | NUR ---
Problems reprioritized. Patient report given, questions answered & plan of care reviewed with Jakub CHANDLER.
[2018-11-22] MEDS: vancomycin 125mg/5ml ORAL solution 5ml UD bottle PO SCH ×4 (07:59→20:30)
[2018-11-22] MEDS: atorvastatin 20mg tablet PO SCH (07:59)
[2018-11-22] MEDS: apixaban 5mg tablet PO SCH ×2 (07:59→20:11)
[2018-11-22] MEDS: ferrous sulfate 325mg tablet PO SCH ×2 (07:59→20:11)
[2018-11-22] MEDS: clopidogrel 75mg tablet PO SCH (07:59)
[2018-11-22] MEDS: benzonatate 100mg capsule PO SCH ×3 (08:00→23:32)
[2018-11-22] MEDS: aspirin 81mg tab.chew PO SCH (08:00)
[2018-11-22] MEDS ORDERED: spironolactone 25 MG tablet PO SCH ×2 (08:00→14:44)
[2018-11-22] MEDS: amiodarone 200mg tablet PO SCH ×2 (08:00→20:11)
[2018-11-22] MEDS: LIRAGLUTIDE 0.6 MG/0.1 ML PEN.INJCTR SQ SCH (08:00)
[2018-11-22] MEDS ORDERED: furosemide 40mg tablet PO SCH (08:00)
[2018-11-22] MEDS: calcium acetate 667mg (PhosLO) capsule PO SCH ×3 (08:00→18:00)
--- NOTE | 2018-11-22 08:55 | NUR ---
PAGER ID: [phone] MESSAGE: RE: Alecia Talbert, Room: 3010. Pt converted to A-fib/flutter at 0700. HR 105-130. Pt not symptomatic. -[facility] #[id number] Dr. Ahumada paged concerning Pt converting to A-fib/flutter HR 105/130.
--- NOTE | 2018-11-22 08:57 | NUR ---
Pt with A1c 8.8 previously admitted and seen by GENO 10/24/18 provided with written and verbal DM education with referral to outpatient DM class and RD contact information. No further education warranted at this time. Will continue to follow. Addendum: 11/22/18 at [address] Amended: Links added.
[2018-11-22] MEDS: carVEDilol 3.125mg tablet PO SCH ×2 (10:36→20:00)
[2018-11-22] MEDS: insulin Lispro (HumaLOG) vial - multi-dose SQ SCH ×2 (14:09→19:26)
[2018-11-22 16:11] LABS: ABG BASE EXCESS 1.7 mmol/L (-2.0-3.0); ABG HCO3 25.4 mmol/L (22.0-26.0); ABG OXYGEN SATURATION 90.5 % (95-98); ABG PCO2 (T) 36.5 mmHg (35.0-45.0); ABG PH (T) 7.461 (7.350-7.450); ABG PO2 (T) 62.4 mmHg (83-108); FCOHb 0.4 % (0.5-1.5); FMetHb 0.3 % (0.3-1.12); FO2Hb 89.9 % (94-100); TOTAL HEMOGLOBIN 9.5 G/dl (12.0-16.0)
--- NOTE | 2018-11-22 18:00 | NUR ---
Problems reprioritized. Patient report given, questions answered & plan of care reviewed with Miryam CHANDLER and Fide CHANDLER.
[2018-11-22] MEDS: lactobacillus rhamnosus 10,000 MMU CELLS/CAPSULE PO SCH (20:10)
[2018-11-22] MEDS: ondansetron/PF 4mg/2ml inj IV PRN (20:30)
[2018-11-22] MEDS: famotidine 20mg tablet PO SCH (20:30)
[2018-11-22] MEDS: mirtazapine 15mg tablet PO SCH (20:43)
[2018-11-22] MEDS: insulin glargine (Lantus) pen - multi-dose SQ SCH (21:00)
[2018-11-22] MEDS ORDERED: INSULIN DETEMIR SQ SCH (21:00)
--- NOTE | 2018-11-22 22:30 | NUR ---
Received telephone call from Dr. Champion inquiring about patient's condition and to review patient's current medications. Reviewed patient's medications, current VS, and urine output. Received order to d/c PO Lasix & Aldactone and start the patient on a low dose Lasix drip at 10mg/hr, and order a PBNP for the AM. All orders placed and will initiate drip when available from pharmacy.
[2018-11-22 22:41] LABS: ANION GAP 11 (8-16); BLOOD UREA NITROGEN 114 MG/DL (7-18); CHLORIDE 94 MMOL/L (99-107); CREATININE 5.76 MG/DL (0.40-0.90); GLUCOSE 169 MG/DL (70-104); POTASSIUM 5.1 MMOL/L (3.5-5.1); SODIUM 132 MMOL/L (135-145); TOTAL CARBON DIOXIDE 27.1 MMOL/L (24-32)
[2018-11-22 22:42] LABS: ALBUMIN 2.1 G/DL (3.4-5.0); BUN/CREATININE RATIO 19.8 (6.6-38.0); CALCIUM 7.9 MG/DL (8.5-10.1); MAGNESIUM 2.8 MG/DL (1.5-2.4); PHOSPHORUS 5.8 MG/DL (2.3-4.5); eGFR 7 ML/MIN
[2018-11-22] MEDS: furosemide inj 100 MG in normal saline 100ml IV soln 90 ML IV SCH (23:35)
[2018-11-23] VITALS (21 sets, daily range): BP systolic 73–127; BP diastolic 37–114
[2018-11-23] MEDS: ondansetron/PF 4mg/2ml inj IV PRN (04:10)
[2018-11-23 04:34] LABS: BASOPHILS # (AUTO) 0.1 X10'3 (0-0.2); BASOPHILS % (AUTO) 0.9 % (0-1); EOSINOPHILS # (AUTO) 0.2 X10'3 (0-0.9); EOSINOPHILS % (AUTO) 2.3 % (0-6); HEMATOCRIT 25.2 % (35.0-45.0); HEMOGLOBIN 8.4 g/dl (12.0-16.0); LYMPHOCYTES # (AUTO) 0.4 X10'3 (1.1-4.8); LYMPHOCYTES % (AUTO) 4.3 % (21-51); MEAN CORPUSCULAR HEMOGLOBIN 30.5 PG (27.0-31.0); MEAN CORPUSCULAR HGB CONC 33.3 g/dL (33.0-36.5); MEAN CORPUSCULAR VOLUME 91.5 FL (78-98); MEAN PLATELET VOLUME 8.9 FL (7.4-10.4); MONOCYTES # (AUTO) 0.4 X10'3 (0-0.9); MONOCYTES % (AUTO) 4.7 % (2-12); NEUTROPHILS # (AUTO) 8.4 X10'3 (1.8-7.7); NEUTROPHILS % (AUTO) 87.8 % (42-75); PLATELET COUNT 167 X10'3 (140-440); RED BLOOD COUNT 2.75 X10'6 (4.20-5.60); RED CELL DISTRIBUTION WIDTH 18.6 % (11.5-14.5); WHITE BLOOD COUNT 9.6 X10'3 (4.5-11.0)
[2018-11-23 05:01] LABS: ALANINE AMINOTRANSFERASE 25 U/L (12-78); ALBUMIN/GLOBULIN RATIO 0.3 (1.1-1.5); ALKALINE PHOSPHATASE 137 IU/L (46-116); ANION GAP 11 (8-16); ASPARTATE AMINO TRANSFERASE 52 U/L (10-37); BILIRUBIN,TOTAL 1.8 MG/DL (0.1-1.0); BLOOD UREA NITROGEN 112 MG/DL (7-18); CHLORIDE 93 MMOL/L (99-107); CREATININE 5.88 MG/DL (0.40-0.90); GLUCOSE 153 MG/DL (70-104); MAGNESIUM 2.7 MG/DL (1.5-2.4); PHOSPHORUS 5.6 MG/DL (2.3-4.5); SODIUM 130 MMOL/L (135-145); eGFR 7 ML/MIN
--- NOTE | 2018-11-23 05:59 | NUR ---
Patient in room PCU 3010. I have received report from GERALDINE Call and had the opportunity to ask questions and assume patient care.
--- NOTE | 2018-11-23 05:59 | NUR ---
[place] Medication Administration: For this medication-pass time frame, all medication were reviewed, dispensed, administered and documented per hospital policy by Fide CHANDLER. [place] documentation: I have reviewed and agree with all interventions, assessments performed and documented by Fide CHANDLER.
--- NOTE | 2018-11-23 06:00 | NUR ---
Patient in room PCU 3010. I have received report from Miryam CHANDLER and Fide CHANDLER and had the opportunity to ask questions and assume patient care.
--- NOTE | 2018-11-23 06:20 | NUR ---
Problems reprioritized. Patient report given, questions answered & plan of care reviewed with GERALDINE Call.
--- NOTE | 2018-11-23 06:24 | NUR ---
Problems reprioritized. Patient report given, questions answered & plan of care reviewed with Jakub CHANDLER.
--- NOTE | 2018-11-23 06:57 | NUR ---
Rapid response called on Pt. Pt had 4.94 sec of asystole at 0624 followed by another 3.25 and one more 3.94. Pt's HR in low 50's now. Vitals BP: 90/60, H Addendum: 11/23/18 at 0704 by Jakub Pickett RN Rapid response called on Pt. Pt had 4.94 sec of asystole at 0624 followed by another 3.25 and one more 3.94. Pt's HR in mid 50's now. Vitals BP: 90/60, HR: 55, RR:22, O2: 99 RA.
--- NOTE | 2018-11-23 07:22 | NUR ---
Pt currently resting, and grand daughter in room. Pt AxO x2. Vitals BP:87/65, HR: 59, RR: 22, O2:97. Dobutamine gtt infusing at 5mcg and lasix gtt running at 10mg.
[2018-11-23] MEDS: carVEDilol 3.125mg tablet PO SCH ×2 (08:00→20:00)
[2018-11-23] MEDS: LIRAGLUTIDE 0.6 MG/0.1 ML PEN.INJCTR SQ SCH (08:00)
[2018-11-23] MEDS: calcium acetate 667mg (PhosLO) capsule PO SCH ×3 (08:00→18:00)
[2018-11-23] MEDS: aspirin 81mg tab.chew PO SCH (08:00)
[2018-11-23] MEDS: benzonatate 100mg capsule PO SCH ×3 (08:00→23:32)
[2018-11-23] MEDS: amiodarone 200mg tablet PO SCH ×2 (08:00→21:58)
--- NOTE | 2018-11-23 08:30 | NUR ---
Dr. Ahumada notified about Pt being [facility]. Asked Dr. Ahumada whether or not to administer morning Amio dose and she replied to hold it.
[2018-11-23] MEDS: furosemide inj 100 MG in normal saline 100ml IV soln 90 ML IV SCH ×2 (09:24→20:18)
[2018-11-23] MEDS: vancomycin 125mg/5ml ORAL solution 5ml UD bottle PO SCH ×4 (09:24→21:58)
[2018-11-23] MEDS: atorvastatin 20mg tablet PO SCH (09:25)
[2018-11-23] MEDS: ferrous sulfate 325mg tablet PO SCH ×2 (09:25→21:59)
[2018-11-23] MEDS: lactobacillus rhamnosus 10,000 MMU CELLS/CAPSULE PO SCH ×2 (09:25→21:58)
[2018-11-23] MEDS: clopidogrel 75mg tablet PO SCH (09:25)
[2018-11-23] MEDS: apixaban 5mg tablet PO SCH ×2 (09:25→20:00)
[2018-11-23 10:05] LABS: ALBUMIN 1.8 G/DL (3.4-5.0); CALCIUM 7.2 MG/DL (8.5-10.1); MAGNESIUM 2.6 MG/DL (1.5-2.4); TOTAL CARBON DIOXIDE 21.3 MMOL/L (24-32)
[2018-11-23 10:22] LABS: ANION GAP 17 (8-16); BLOOD UREA NITROGEN 110 MG/DL (7-18); CHLORIDE 96 MMOL/L (99-107); CREATININE 5.79 MG/DL (0.40-0.90); GLUCOSE 191 MG/DL (70-104); PHOSPHORUS 5.5 MG/DL (2.3-4.5); POTASSIUM 4.9 MMOL/L (3.5-5.1); SODIUM 134 MMOL/L (135-145); eGFR 7 ML/MIN
[2018-11-23] MEDS ORDERED: LORazepam 2 mg/ml vial IV PRN (12:00)
[2018-11-23] MEDS: LORazepam 2 mg/ml vial IV PRN (13:02)
[2018-11-23] MEDS: insulin Lispro (HumaLOG) vial - multi-dose SQ SCH (13:17)
[2018-11-23 16:33] LABS: ALBUMIN 1.9 G/DL (3.4-5.0); ANION GAP 8 (8-16); BLOOD UREA NITROGEN 122 MG/DL (7-18); CALCIUM 7.5 MG/DL (8.5-10.1); CHLORIDE 94 MMOL/L (99-107); CREATININE 6.43 MG/DL (0.40-0.90); GLUCOSE 193 MG/DL (70-104); MAGNESIUM 2.6 MG/DL (1.5-2.4); PHOSPHORUS 6.2 MG/DL (2.3-4.5); POTASSIUM 4.8 MMOL/L (3.5-5.1); SODIUM 129 MMOL/L (135-145); TOTAL CARBON DIOXIDE 27.4 MMOL/L (24-32); eGFR 6 ML/MIN
--- NOTE | 2018-11-23 18:00 | NUR ---
Problems reprioritized. Patient report given, questions answered & plan of care reviewed with Miryam RN, Fied RN.
--- NOTE | 2018-11-23 20:02 | NUR ---
Called to the room by patient's urgently as patient had tried to sit up to the edge of the bed and slid out onto the floor and was on her knees. Patient was alert and when asked what happened said she wanted to sit up. I had just been in and out the room no more than 20 minutes prior and patient was resting comfortably in bed, side rails were up. No signs of injury noted. Patient denies pain. Bed alarm set. MD Bran notified, no new orders given. Addendum: 11/23/18 at 2007 by Miryam Odonnell RN Amended to add: Patient was unable assist with standing back up so patient was assisted to a lying position and the lorena lift was used to assist the patient back into bed. Patient was assessed head to toe and VS obtained.
[2018-11-23] MEDS: famotidine 20mg tablet PO SCH (21:59)
[2018-11-23] MEDS: mirtazapine 15mg tablet PO SCH (21:59)
[2018-11-23] MEDS: DOBUTamine-DoBUTrex 500mg/D5W 250 ML IV SCH (22:00)
[2018-11-23] MEDS: insulin glargine (Lantus) pen - multi-dose SQ SCH (22:08)
[2018-11-23 22:33] LABS: ALBUMIN 1.9 G/DL (3.4-5.0); ANION GAP 10 (8-16); BLOOD UREA NITROGEN 123 MG/DL (7-18); BUN/CREATININE RATIO 18.2 (6.6-38.0); CALCIUM 7.6 MG/DL (8.5-10.1); CHLORIDE 94 MMOL/L (99-107); CREATININE 6.75 MG/DL (0.40-0.90); GLUCOSE 216 MG/DL (70-104); MAGNESIUM 2.6 MG/DL (1.5-2.4); PHOSPHORUS 6.2 MG/DL (2.3-4.5); POTASSIUM 4.8 MMOL/L (3.5-5.1); SODIUM 130 MMOL/L (135-145); eGFR 6 ML/MIN
[2018-11-23] MEDS ORDERED: diphenhydrAMINE 50 mg/ml inj IV ONE (23:55)
[2018-11-24] VITALS (7 sets, daily range): BP systolic 73–106; BP diastolic 51–89
[2018-11-24] MEDS: LORazepam 2 mg/ml vial IV PRN ×2 (01:04→21:20)
--- NOTE | 2018-11-24 02:34 | NUR ---
Patient in room PCU 3010. I have received report from GERALDINE Call and had the opportunity to ask questions and assume patient care.
--- NOTE | 2018-11-24 02:34 | NUR ---
1999 and 2099 were held because the patient was confused and not able to follow commands or swallow. After she was more calm Miryam and I assessed if she was able to safely take the medications and she was able to have them at a later time.
[2018-11-24] MEDS ORDERED: LORazepam 2 mg/ml vial IV ONE (03:25)
[2018-11-24] MEDS: furosemide inj 100 MG in normal saline 100ml IV soln 90 ML IV SCH ×3 (03:41→19:03)
[2018-11-24 03:55] LABS: BASOPHILS # (AUTO) 0.1 X10'3 (0-0.2); BASOPHILS % (AUTO) 1.1 % (0-1); EOSINOPHILS # (AUTO) 0.2 X10'3 (0-0.9); EOSINOPHILS % (AUTO) 1.6 % (0-6); HEMATOCRIT 23.6 % (35.0-45.0); HEMOGLOBIN 7.8 g/dl (12.0-16.0); LYMPHOCYTES # (AUTO) 0.3 X10'3 (1.1-4.8); LYMPHOCYTES % (AUTO) 2.3 % (21-51); MEAN CORPUSCULAR HEMOGLOBIN 29.9 PG (27.0-31.0); MEAN CORPUSCULAR HGB CONC 32.9 g/dL (33.0-36.5); MEAN CORPUSCULAR VOLUME 90.9 FL (78-98); MEAN PLATELET VOLUME 9.5 FL (7.4-10.4); MONOCYTES # (AUTO) 0.3 X10'3 (0-0.9); MONOCYTES % (AUTO) 2.6 % (2-12); NEUTROPHILS % (AUTO) 92.4 % (42-75); PLATELET COUNT 167 X10'3 (140-440); RED CELL DISTRIBUTION WIDTH 18.8 % (11.5-14.5); WHITE BLOOD COUNT 12.9 X10'3 (4.5-11.0)
[2018-11-24 04:24] LABS: ALANINE AMINOTRANSFERASE 37 U/L (12-78); ALBUMIN 1.8 G/DL (3.4-5.0); ALBUMIN/GLOBULIN RATIO 0.3 (1.1-1.5); ALKALINE PHOSPHATASE 155 IU/L (46-116); ANION GAP 12 (8-16); ASPARTATE AMINO TRANSFERASE 91 U/L (10-37); BILIRUBIN,TOTAL 2.5 MG/DL (0.1-1.0); BLOOD UREA NITROGEN 129 MG/DL (7-18); BUN/CREATININE RATIO 18.6 (6.6-38.0); CALCIUM 7.4 MG/DL (8.5-10.1); CHLORIDE 94 MMOL/L (99-107); CREATININE 6.95 MG/DL (0.40-0.90); GLUCOSE 191 MG/DL (70-104); MAGNESIUM 2.8 MG/DL (1.5-2.4); POTASSIUM 4.8 MMOL/L (3.5-5.1); SODIUM 132 MMOL/L (135-145); TOTAL CARBON DIOXIDE 25.9 MMOL/L (24-32); TOTAL PROTEIN 7.5 G/DL (6.4-8.2); eGFR 6 ML/MIN
--- NOTE | 2018-11-24 05:47 | NUR ---
[place] Medication Administration: For this medication-pass time frame, all medication were reviewed, dispensed, administered and documented per hospital policy by Fide CHANDLER. [place] documentation: I have reviewed all interventions, assessments performed and documented by Fide CHANDLER.
--- NOTE | 2018-11-24 06:12 | NUR ---
Problems reprioritized. Patient report given, questions answered & plan of care reviewed with Nallely CHANDLER.
--- NOTE | 2018-11-24 06:47 | NUR ---
Patient in room PCU 3010. I have received report from Miryam CHANDLER and had the opportunity to ask questions and assume patient care.
[2018-11-24] MEDS: benzonatate 100mg capsule PO SCH ×2 (07:25→16:00)
[2018-11-24] MEDS: aspirin 81mg tab.chew PO SCH (08:00)
[2018-11-24] MEDS: atorvastatin 20mg tablet PO SCH (08:00)
[2018-11-24] MEDS: carVEDilol 3.125mg tablet PO SCH ×2 (08:00→20:00)
[2018-11-24] MEDS: lactobacillus rhamnosus 10,000 MMU CELLS/CAPSULE PO SCH ×2 (08:00→20:00)
[2018-11-24] MEDS: clopidogrel 75mg tablet PO SCH (08:00)
[2018-11-24] MEDS: apixaban 5mg tablet PO SCH ×2 (08:00→20:00)
[2018-11-24] MEDS: amiodarone 200mg tablet PO SCH ×2 (08:00→20:00)
[2018-11-24] MEDS: vancomycin 125mg/5ml ORAL solution 5ml UD bottle PO SCH ×4 (08:00→21:00)
[2018-11-24] MEDS: LIRAGLUTIDE 0.6 MG/0.1 ML PEN.INJCTR SQ SCH (08:00)
[2018-11-24] MEDS: ferrous sulfate 325mg tablet PO SCH ×2 (08:00→20:00)
[2018-11-24] MEDS: calcium acetate 667mg (PhosLO) capsule PO SCH ×3 (08:00→18:00)
[2018-11-24 11:34] LABS: ALBUMIN 1.9 G/DL (3.4-5.0); ANION GAP 12 (8-16); BLOOD UREA NITROGEN 128 MG/DL (7-18); BUN/CREATININE RATIO 18.4 (6.6-38.0); CALCIUM 7.7 MG/DL (8.5-10.1); CHLORIDE 93 MMOL/L (99-107); CREATININE 6.97 MG/DL (0.40-0.90); GLUCOSE 215 MG/DL (70-104); MAGNESIUM 2.8 MG/DL (1.5-2.4); PHOSPHORUS 5.8 MG/DL (2.3-4.5); POTASSIUM 4.7 MMOL/L (3.5-5.1); SODIUM 132 MMOL/L (135-145); TOTAL CARBON DIOXIDE 27.1 MMOL/L (24-32); eGFR 6 ML/MIN
[2018-11-24] MEDS: insulin Lispro (HumaLOG) vial - multi-dose SQ SCH (11:41)
[2018-11-24 16:57] LABS: ALBUMIN 1.9 G/DL (3.4-5.0); ANION GAP 9 (8-16); BLOOD UREA NITROGEN 130 MG/DL (7-18); BUN/CREATININE RATIO 18.2 (6.6-38.0); CALCIUM 7.3 MG/DL (8.5-10.1); CHLORIDE 94 MMOL/L (99-107); CREATININE 7.15 MG/DL (0.40-0.90); GLUCOSE 131 MG/DL (70-104); MAGNESIUM 2.6 MG/DL (1.5-2.4); PHOSPHORUS 5.9 MG/DL (2.3-4.5); POTASSIUM 4.6 MMOL/L (3.5-5.1); SODIUM 130 MMOL/L (135-145); TOTAL CARBON DIOXIDE 27.5 MMOL/L (24-32); eGFR 6 ML/MIN
--- NOTE | 2018-11-24 17:17 | NUR ---
Patient has been difficult to arouse all day today, needing to be spoken to with a loud voice and shaken to be awakened. However she is only able to remain conscious for a few seconds before drifting back to sleep again. Her speech has become incomprehensible and for the most part she has been disoriented. I was unable to administer her medications today d/t her drowsiness and because of fear that the patient would choke/aspirate. Both Dr. Ahumada and Dr. Champion are aware of this and are agreeable to my decision to hold meds for change in patient condition and in consideration to aspiration precautions. There is active conversation between family and care providers regarding comfort care. The decision to take this step is still vague, but the has verbalized to me that he would like to hold it off until tomorrow, 11/25/18, so that family has time to meet.
--- NOTE | 2018-11-24 18:51 | NUR ---
Problems reprioritized. Patient report given, questions answered & plan of care reviewed with Tania CHANDLER.
[2018-11-24] MEDS: DOBUTamine-DoBUTrex 500mg/D5W 250 ML IV SCH (19:02)
[2018-11-24] MEDS: mirtazapine 15mg tablet PO SCH (21:00)
[2018-11-24] MEDS: famotidine 20mg tablet PO SCH (21:00)
[2018-11-24] MEDS: insulin glargine (Lantus) pen - multi-dose SQ SCH (21:00)
--- NOTE | 2018-11-24 21:32 | NUR ---
Patient is obtunded and unable to awaken to take medications. Her daughter Greta is in the room. She would like the dobutamine drip, the lasix drip and the ativan to continue but believes we should discontinue all other meds. She would also like to discontinue accuchecks and insulin treatment.
--- NOTE | 2018-11-24 21:40 | NUR ---
Patient is obtunded and unable to eat. Addendum: 11/24/18 at 2140 by Tania Womack RN Amended: Links added.
[2018-11-24 22:30] LABS: ANION GAP 13 (8-16); BLOOD UREA NITROGEN 134 MG/DL (7-18); BUN/CREATININE RATIO 17.8 (6.6-38.0); CALCIUM 7.7 MG/DL (8.5-10.1); CHLORIDE 94 MMOL/L (99-107); CREATININE 7.54 MG/DL (0.40-0.90); GLUCOSE 125 MG/DL (70-104); MAGNESIUM 2.8 MG/DL (1.5-2.4); PHOSPHORUS 6.3 MG/DL (2.3-4.5); SODIUM 132 MMOL/L (135-145); TOTAL CARBON DIOXIDE 24.9 MMOL/L (24-32); eGFR 5 ML/MIN
--- NOTE | 2018-11-25 01:42 | NUR ---
Patient in room PCU 3010. I have received report from Cynthia CHANDLER and had the opportunity to ask questions and assume patient care. Patient is obtunded and on mobile 68, her vitals are all stable, will continue to monitor.
[2018-11-25] MEDS: LORazepam 2 mg/ml vial IV PRN ×4 (02:18→23:14)
[2018-11-25 03:00] VITALS: BP 100/47
[2018-11-25 04:11] LABS: BASOPHILS # (AUTO) 0.1 X10'3 (0-0.2); BASOPHILS % (AUTO) 0.8 % (0-1); EOSINOPHILS # (AUTO) 0.4 X10'3 (0-0.9); EOSINOPHILS % (AUTO) 4.1 % (0-6); HEMATOCRIT 23.2 % (35.0-45.0); HEMOGLOBIN 7.7 g/dl (12.0-16.0); LYMPHOCYTES # (AUTO) 0.3 X10'3 (1.1-4.8); LYMPHOCYTES % (AUTO) 3.2 % (21-51); MEAN CORPUSCULAR HEMOGLOBIN 30.5 PG (27.0-31.0); MEAN CORPUSCULAR HGB CONC 33.2 g/dL (33.0-36.5); MEAN CORPUSCULAR VOLUME 91.7 FL (78-98); MEAN PLATELET VOLUME 9.3 FL (7.4-10.4); MONOCYTES # (AUTO) 0.3 X10'3 (0-0.9); MONOCYTES % (AUTO) 3.6 % (2-12); NEUTROPHILS # (AUTO) 7.7 X10'3 (1.8-7.7); NEUTROPHILS % (AUTO) 88.3 % (42-75); PLATELET COUNT 154 X10'3 (140-440); RED BLOOD COUNT 2.53 X10'6 (4.20-5.60); RED CELL DISTRIBUTION WIDTH 18.8 % (11.5-14.5); WHITE BLOOD COUNT 8.7 X10'3 (4.5-11.0)
[2018-11-25 04:24] LABS: ALANINE AMINOTRANSFERASE 48 U/L (12-78); ALBUMIN 1.8 G/DL (3.4-5.0); ALBUMIN/GLOBULIN RATIO 0.3 (1.1-1.5); ALKALINE PHOSPHATASE 174 IU/L (46-116); ANION GAP 12 (8-16); ASPARTATE AMINO TRANSFERASE 124 U/L (10-37); BILIRUBIN,TOTAL 2.5 MG/DL (0.1-1.0); BLOOD UREA NITROGEN 133 MG/DL (7-18); BUN/CREATININE RATIO 17.2 (6.6-38.0); CALCIUM 6.8 MG/DL (8.5-10.1); CHLORIDE 92 MMOL/L (99-107); CREATININE 7.75 MG/DL (0.40-0.90); GLUCOSE 174 MG/DL (70-104); MAGNESIUM 2.7 MG/DL (1.5-2.4); PHOSPHORUS 6.4 MG/DL (2.3-4.5); POTASSIUM 4.9 MMOL/L (3.5-5.1); SODIUM 131 MMOL/L (135-145); TOTAL PROTEIN 7.4 G/DL (6.4-8.2); eGFR 5 ML/MIN
[2018-11-25] MEDS: furosemide inj 100 MG in normal saline 100ml IV soln 90 ML IV SCH (04:28)
[2018-11-25 04:55] LABS: ANISOCYTOSIS 2+; BURR CELLS FEW; ELLIPTOCYTES FEW; PLATELET ESTIMATE NORMAL; POLYCHROMASIA FEW
[2018-11-25 06:00] VITALS: BP 108/72
--- NOTE | 2018-11-25 06:53 | NUR ---
received report from GERALDINE Marin. pt in bed with daughter at bedside. pt non verbal at this time. previous RN and daughter both said that pt has been obtunded.
[2018-11-25] MEDS: LIRAGLUTIDE 0.6 MG/0.1 ML PEN.INJCTR SQ SCH (08:00)
[2018-11-25] MEDS: calcium acetate 667mg (PhosLO) capsule PO SCH (08:00)
[2018-11-25] MEDS: amiodarone 200mg tablet PO SCH (08:00)
[2018-11-25] MEDS: vancomycin 125mg/5ml ORAL solution 5ml UD bottle PO SCH (08:00)
[2018-11-25] MEDS: atorvastatin 20mg tablet PO SCH (08:00)
[2018-11-25] MEDS: ferrous sulfate 325mg tablet PO SCH (08:00)
[2018-11-25] MEDS: lactobacillus rhamnosus 10,000 MMU CELLS/CAPSULE PO SCH (08:00)
[2018-11-25] MEDS: benzonatate 100mg capsule PO SCH ×2 (08:00)
[2018-11-25] MEDS: aspirin 81mg tab.chew PO SCH (08:00)
[2018-11-25] MEDS: apixaban 5mg tablet PO SCH (08:00)
[2018-11-25] MEDS: carVEDilol 3.125mg tablet PO SCH (08:00)
[2018-11-25] MEDS: clopidogrel 75mg tablet PO SCH (08:00)
[2018-11-25 08:20] VITALS: BP 94/43
--- NOTE | 2018-11-25 08:47 | NUR ---
PAGED DR PAYTON PAGER ID: [phone] MESSAGE: CADEN LOPEZ 2076 ISIDROTATUM IS HERE AND WOULD LIKE PT TO GO ON COMFORT CARE
[2018-11-25 10:20] VITALS: BP 81/52
--- NOTE | 2018-11-25 10:38 | NUR ---
PAGED DR PAYTON promotional table spacer PAGER ID: [phone] MESSAGE: CADEN PCU [phone] CAN YOU PUT IN COMFORT CARE SET ORDERS AND D/C DOBUTAMINE AND LASIX GTT PLEASE? THANKS
[2018-11-25 11:00] VITALS: BP 96/42
[2018-11-25] MEDS ORDERED: LORazepam 2 mg/ml vial IV PRN (11:35)
--- NOTE | 2018-11-25 13:58 | NUR ---
Pt has been made DNR w/ comfort care. [facility] 11/24. Will continue to follow per protocol. Addendum: 11/25/18 at [address] Amended: Links added.
[2018-11-25 18:00] VITALS: BP 90/47
--- NOTE | 2018-11-25 18:38 | NUR ---
REPORT GIVEN TO GERALDINE REDD. PT RESTING IN BED WITH AT BEDSIDE.
--- NOTE | 2018-11-25 18:38 | NUR ---
Student documentation: I have reviewed and agree with all interventions, assessments performed and documented by KAY.
--- NOTE | 2018-11-25 18:39 | NUR ---
Student Medication Administration: For this medication-pass time frame, all medication were reviewed, dispensed, administered and documented per hospital policy by KAY.
--- NOTE | 2018-11-25 18:43 | NUR ---
Patient in room PCU 3010. I have received report from GERALDINE Kenney and had the opportunity to ask questions and assume patient care.
--- NOTE | 2018-11-25 20:00 | NUR ---
Patient is not opening her eyes at this time. It is hard to asses. Pupils are a 2 Addendum: 11/25/18 at 2119 by Westley Viveros RN Amended: Links added.
--- NOTE | 2018-11-25 21:00 | NUR ---
Per day shift nurse in report the andersen was discontinued during her shift. I am un aware of the time. Patient is on comfort care. Addendum: 11/25/18 at 2101 by Westley Viveros RN Amended: Links added.
[2018-11-26] MEDS ORDERED: diphenhydrAMINE 50 mg/ml inj IV PRN (02:55)
--- NOTE | 2018-11-26 02:57 | NUR ---
Patient has been itching her body and left eye this shift. Her eye has been bleeding because of it . She has been moving restless all shift even after scheduled Ativan was given. I called the hospitalist and he told me to give Benadryl 50mg IV every 6hrs PRN for itching. He also told me to give the Ativan early.
--- NOTE | 2018-11-26 05:27 | NUR ---
0325 Charge nurse who had been monitoring the telemetry office informed me that my patient heart rate had dropped and sustained in the 30's. I went in and the patient was agonal breathing, I felt her radial pulse and i did not feel anything. Another nurse came in because the tele showed that she went into asystole. We both listened for heart sounds thorough a stethoscope and heard nothing. There was an order that an RN can pronounce the . I pronounced the time of at 0334. had been at bedside but had left when I came in. When he arrived back on the unit I informed him that she had . requested Jessy Chapel. I notified the Hospitalist and the [facility]. Patients belongings is at bedside and will go to home with patient.
== END 2018-11-26 05:55 | disposition expired | DRG 292 ==
LOC: PCU 3S 11-22
PROVIDERS: ADMIT Internal Medicine; ATTEND Internal Medicine
DX: I50.23 Acute on chronic systolic (congestive) heart failure (principal); I42.0 Dilated cardiomyopathy; N18.9 Chronic kidney disease, unspecified; E11.22 Type 2 diabetes mellitus with diabetic chronic kidney disease; E11.610 Type 2 diabetes mellitus with diabetic neuropathic arthropathy; I25.10 Atherosclerotic heart disease of native coronary artery without angina pectoris; I48.0 Paroxysmal atrial fibrillation; D69.6 Thrombocytopenia, unspecified; M32.9 Systemic lupus erythematosus, unspecified; I50.84 End stage heart failure; K74.60 Unspecified cirrhosis of liver; K75.81 Nonalcoholic steatohepatitis (NASH); Z51.5 Encounter for palliative care; Z66 Do not resuscitate; Z79.02 Long term (current) use of antithrombotics/antiplatelets; Z79.4 Long term (current) use of insulin; Z95.5 Presence of coronary angioplasty implant and graft
CPT/HCPCS: 36415; 36600; 71045; 80048; 80053; 80069; 82140; 82803; 82948; 83735; 83880; 84100; 85018; 85025; 87081; G0378; J1200; J1250; J1815; J1940; J2060; J2405